=== PATIENT | male | born 1955 | race Two or more races ===

== ENCOUNTER 2023-04-17 09:00 | Inpatient (IN) | payer OTHER ==
[2023-04-17] MEDS ORDERED: BENICAR40 MG (10:33)
[2023-04-17] MEDS ORDERED: HYDROCHLOROTHIA25 MG (10:33)
[2023-04-17] MEDS ORDERED: CARDIZEM CD240 MG (10:33)
[2023-04-17] MEDS ORDERED: CARDURA XL4 MG PO (10:34)
[2023-04-17 11:19] LABS: PH,URINE 5.5 (5.0-8.0); URINE APPEARANCE Clear; URINE BILIRRUBIN Negative (NEGATIVE); URINE BLOOD Negative; URINE COLOR Yellow; URINE GLUCOSE Negative (NEGATIVE); URINE LEUKOCYTE Negative; URINE NITRATE Negative; URINE PROTEIN Negative (NEGATIVE); URINE UROBILINOGEN 0.2 E.U./dl
[2023-04-17 11:20] LABS: URINE BACTERIA 12.5 uL (0.0-1933); URINE EPITHELIAL CELLS 1.5 uL (0.0-38.8); URINE RBC 5.1 uL (0.0-20.8); URINE WBC 2.4 uL (0.0-23.2)
[2023-04-17 11:24] LABS: HEMATOCRIT 42.6 % (39.0-48.0); HEMOGLOBIN 14.7 g/dL (13-16.00); MEAN CORPUSCULAR HGB CONC 34.5 g/dl (32.0-36.0); RED CELL DISTRIBUTION WIDTH 14.2 % (11.5-14.5)
[2023-04-17 11:41] LABS: PLATELET COUNT 116 K/uL (150-450)
[2023-04-17 11:50] LABS: INR 1.04; PARTIAL THROMBOPLASTIN TIME 29.5 SECONDS (22.0-34.0); PROTHROMBIN TIME 10.9 SECONDS (9.0-11.5)
[2023-04-17 11:57] LABS: ALBUMIN 4.1 gm/dL (3.4-5.0); BILIRUBIN TOTAL 0.74 mg/dL (0.3-1.2); CALCIUM 9.5 mg/dL (8.5-10.1); CREATININE SERUM 0.94 mg/dL (0.70-1.30); GFR 79.81; GLOBULINA 3.4 G/DL (2.4-3.5); POTASSIUM 3.42 mEq/L (3.5-5.1); TOTAL PROTEIN 7.5 gm/dL (6.4-8.2)
[2023-04-23] MEDS ORDERED: VANCOMYCIN HCL 1,000 MG VIAL ONE ×2 (12:59→13:20)
[2023-04-23] MEDS ORDERED: LIDOCAINE HCL/EPINEPHRINE 20 ML VIAL IJ ONE (13:20)
[2023-04-23] MEDS ORDERED: KETOROLAC TROMETHAMINE 60 MG VIAL IM ONE ×2 (13:20→15:45)
[2023-04-23] MEDS ORDERED: TRANEXAMIC ACID 100MG/1ML (1000MG) AMPUL IV ONE ×2 (13:20→15:00)
[2023-04-23] MEDS ORDERED: POVIDONE-IODINE 3 EA MED..SWAB TOP ONE (13:20)
[2023-04-23] MEDS ORDERED: BUPIVACAINE HCL/PF 0.5% 1ML ONE (13:20)
[2023-04-23] MEDS ORDERED: ONDANSETRON HCL 2 MG/ML VIAL IV PRN (14:45)
[2023-04-23] MEDS ORDERED: OxyCODONE HCL 5 MG TABLET (ROXICODONE) PO PRN (14:45)
[2023-04-23] MEDS ORDERED: MORPHINE SULFATE 4 MG/ML CARTRIDGE IV PRN (14:45)
[2023-04-23] MEDS ORDERED: SODIUM CHLORIDE 0.45 % 1,000 ML IV SCH (14:45)
[2023-04-23] MEDS ORDERED: VANCOMYCIN HCL 1,000 MG VIAL IV ONE (15:15)
[2023-04-23] MEDS ORDERED: MORPHINE SULFATE 4 MG/ML VIAL IV ONE (15:45)
[2023-04-23] MEDS ORDERED: BUPIVACAINE HCL/PF 0.5% 30ML ML IJ ONE (15:45)
[2023-04-23] MEDS ORDERED: LIDOCAINE HCL/EPINEPHRINE 30 ML ML IJ ONE (15:45)
[2023-04-23] MEDS ORDERED: GABAPENTIN 300 MG CAPSULE PO SCH (17:00)
[2023-04-23] MEDS ORDERED: ENALAPRILAT DIHYDRATE 1.25 MG/ML VIAL IV PRN (17:45)
[2023-04-23] MEDS ORDERED: ACETAMINOPHEN 500 MG GEL..CAP PO SCH (18:00)
[2023-04-23] MEDS ORDERED: CELECOXIB 200 MG CAPSULE PO SCH (21:00)
[2023-04-23] MEDS ORDERED: VANCOMYCIN HCL 1,000 MG in 0.9 % SODIUM CHLORIDE 250 ML IV SCH (21:00)
[2023-04-24] MEDS ORDERED: CIPRO500 MG PO (07:24)
[2023-04-24] MEDS ORDERED: ELIQUIS2.5 MG PO (07:24)
[2023-04-24] MEDS ORDERED: PERCOCET 5-3251 EACH PO (07:24)
[2023-04-24 08:07] LABS: HEMATOCRIT 37.4 % (39.0-48.0); HEMOGLOBIN 12.9 g/dL (13-16.00); MEAN CELL VOLUME 85.4 fL (80.0-100.00); MEAN CORPUSCULAR HEMOGLOBIN 29.4 pg (27.00-32.0); MEAN CORPUSCULAR HGB CONC 34.4 g/dl (32.0-36.0); RED BLOOD COUNT 4.38 M/uL (4.00-6.00); RED CELL DISTRIBUTION WIDTH 14.3 % (11.5-14.5)
[2023-04-24 08:10] LABS: PLATELET COUNT 66 K/uL (150-450)
[2023-04-24] MEDS ORDERED: DOXAZOSIN MESYLATE 4 MG TABLET PO SCH (09:00)
[2023-04-24] MEDS ORDERED: PATIENTS OWN MEDICATION (MEDICAMENTO EN PISO) PO SCH (09:00)
[2023-04-24] MEDS ORDERED: HYDROCHLOROTHIAZIDE 25 MG TABLET PO SCH (09:00)
[2023-04-24] MEDS ORDERED: APIXABAN 2.5 MG TABLET PO SCH (09:00)
[2023-04-24] MEDS ORDERED: DILTIAZEM HCL 240 MG CAP.SR.24H PO SCH (09:00)
[2023-04-24] MEDS ORDERED: SENNOSIDES 1 TAB TABLET PO SCH (09:00)
[2023-04-24] MEDS ORDERED: VANCOMYCIN HCL 1,000 MG VIAL IV ONE (11:45)
[2023-04-24] MEDS ORDERED: Cyanocobalamin/Mecobalamin 1 TAB.SL SL SCH (18:21)
[2023-04-24] MEDS ORDERED: VITAMIN B COMPLEX 1 EACH PO SCH (18:21)
[2023-04-25] MEDS ORDERED: IRON FUM,PS/FOLIC ACID/VITC/B3 1 CAP CAPSULE PO SCH (09:00)
[2023-04-25 11:38] LABS: HEMATOCRIT 35.4 % (39.0-48.0); HEMOGLOBIN 12.3 g/dL (13-16.00); MEAN CELL VOLUME 86.4 fL (80.0-100.00); MEAN CORPUSCULAR HGB CONC 34.7 g/dl (32.0-36.0); RED BLOOD COUNT 4.09 M/uL (4.00-6.00); RED CELL DISTRIBUTION WIDTH 14.2 % (11.5-14.5)
[2023-04-25 11:39] LABS: PLATELET COUNT 83 K/uL (150-450)
== END 2023-04-25 17:25 | disposition home or self-care (01) | DRG 470 ==
LOC: O/R 04-23 05:33 → SURH 04-23 09:00 → SURG 04-23 22:18
PROVIDERS: ADMIT Orthopaedic Surgery; ATTEND Orthopaedic Surgery
PROC: 0SRD0J9 Replacement of Left Knee Joint with Synthetic Substitute, Cemented, Open Approach (ICD-10-PCS; principal; 2023-04-23 11:30)
DX: M17.12 Unilateral primary osteoarthritis, left knee (principal); D62 Acute posthemorrhagic anemia; M22.12 Recurrent subluxation of patella, left knee; I10 Essential (primary) hypertension; Z20.822 Contact with and (suspected) exposure to COVID-19

== ENCOUNTER 2023-11-27 13:00 | Inpatient (IN) | payer OTHER ==
[~2023-11-27] VITALS: Ht 167.6 cm; Wt 63.5 kg
[~2023-11-27 13:00] MED LIST: BENICAR40 MG; CARDIZEM CD240 MG; CARDURA XL4 MG PO; CIPRO500 MG PO; ELIQUIS2.5 MG PO; HYDROCHLOROTHIA25 MG; PERCOCET 5-3251 EACH PO
[2023-11-27] MEDS ORDERED: 0.9 % SODIUM CHLORIDE 500 ML IV ONE (14:45)
[2023-11-27] MEDS ORDERED: FAMOTIDINE/PF 20 MG/2 ML VIAL IV ONE (14:45)
[2023-11-27] MEDS ORDERED: ONDANSETRON HCL 2 MG/ML VIAL IV ONE (15:00)
[2023-11-27] MEDS ORDERED: ONDANSETRON HCL 2 MG/ML VIAL ONE (15:26)
[2023-11-27] MEDS ORDERED: FAMOTIDINE/PF 20 MG/2 ML VIAL ONE (15:26)
[2023-11-27 15:53] LABS: HEMATOCRIT 25.1 % (39.0-48.0); MEAN CELL VOLUME 84.4 fL (80.0-100.00); MEAN CORPUSCULAR HEMOGLOBIN 30.4 pg (27.00-32.0); PLATELET COUNT 112 K/uL (150-450); RED BLOOD COUNT 2.97 M/uL (4.00-6.00); RED CELL DISTRIBUTION WIDTH 16.8 % (11.5-14.5)
[2023-11-27 16:18] LABS: ALBUMIN 3.9 gm/dL (3.4-5.0); BILIRUBIN TOTAL 0.27 mg/dL (0.3-1.2); CREATININE SERUM 3.16 mg/dL (0.70-1.30); GFR 19.64; GLOBULINA 3.4 G/DL (2.4-3.5); TOTAL PROTEIN 7.3 gm/dL (6.4-8.2)
[2023-11-27] MEDS ORDERED: SODIUM POLYSTYRENE SULFONATE 15 G/4 TSP TSP PO ONE (16:30)
[2023-11-27] MEDS ORDERED: INSULIN REGULAR, HUMAN 1,000 UNIT/10 ML UNITS IV ONE (16:30)
[2023-11-27] MEDS ORDERED: FUROsemide 40 MG/4 ML VIAL IV ONE (16:30)
[2023-11-27] MEDS ORDERED: DEXTROSE 50 % IN WATER 0.5 G/ML VIAL IV ONE (16:30)
[2023-11-27] MEDS ORDERED: CALCIUM GLUCONATE 100 MG/ML VIAL IV ONE (16:30)
[2023-11-27 16:46] LABS: POTASSIUM 7.48 mEq/L (3.5-5.1)
[2023-11-27 16:47] LABS: ABG PH 7.332 (7.35-7.45); ABG PO2 109.8 mmHg (80-100); ABG pCO2 32.3 mmHg (35-45); BASE EXCESS -7.9 mmol/l; BICARBONATE 16.7 mmol/l (23-25); SaO2 97.7 %; Tco2 17.7 mmol/l
[2023-11-27 16:55] LABS: MAGNESIUM 2.6 mg/dL (1.8-2.4); PHOSPHOROUS 3.6 mg/dL (2.5-4.9)
[2023-11-27] MEDS ORDERED: CALCIUM GLUCONATE 100 MG/ML VIAL ONE (16:56)
[2023-11-27] MEDS ORDERED: DEXTROSE 50 % IN WATER 0.5 G/ML DISP.SYRIN IV ONE (16:56)
[2023-11-27] MEDS ORDERED: FUROsemide 40 MG/4 ML VIAL ONE (16:57)
[2023-11-27] MEDS ORDERED: ACETAMINOPHEN 500 MG GEL..CAP PO PRN (17:45)
[2023-11-27] MEDS ORDERED: SODIUM POLYSTYRENE SULFONATE 15 G/4 TSP TSP PO SCH (17:45)
[2023-11-27] MEDS ORDERED: SODIUM BICARBONATE 50 MEQ in SODIUM CHLORIDE 0.45 % 1,000 ML IV ONE (17:45)
[2023-11-27] MEDS ORDERED: 0.9 % SODIUM CHLORIDE 1,000 ML IV SCH (18:00)
[2023-11-27] MEDS ORDERED: LACTULOSE 10 G/15 ML ML PO ONE (18:00)
[2023-11-27] MEDS ORDERED: SODIUM BICARBONATE 50MEQ/50ML VIAL IV ONE (18:12)
[2023-11-27 18:27] LABS: URINE APPEARANCE Clear; URINE BILIRRUBIN Negative (NEGATIVE); URINE BLOOD Small; URINE COLOR Yellow; URINE GLUCOSE Negative (NEGATIVE); URINE KETONE Negative (NEGATIVE); URINE LEUKOCYTE Negative; URINE NITRATE Negative; URINE PROTEIN Negative (NEGATIVE); URINE UROBILINOGEN 0.2 E.U./dl
[2023-11-27 18:31] LABS: URINE RBC 2.2 uL (0.0-20.8)
[2023-11-27 18:32] LABS: URINE BACTERIA 2.5 uL (0.0-1933); URINE CAST 0.15 uL (0.0-1.40); URINE EPITHELIAL CELLS 0.1 uL (0.0-38.8); URINE WBC 0.9 uL (0.0-23.2)
[2023-11-27] MEDS ORDERED: LACTULOSE 20 G/30 ML BLIST.PACK ONE (18:49)
[2023-11-27 18:57] LABS: INR 1.03; PARTIAL THROMBOPLASTIN TIME 27.8 SECONDS (22.0-34.0); PROTHROMBIN TIME 11.2 SECONDS (9.0-11.5)
[2023-11-27] MEDS ORDERED: hydrALAZINE HCL 20 MG VIAL IV PRN (19:15)
[2023-11-27] MEDS ORDERED: ONDANSETRON HCL 2 MG/ML VIAL IV PRN (19:15)
[2023-11-27 20:14] LABS: allen test SATISFACTORY; puncture site RADIAL RIGHT
[2023-11-27 20:15] LABS: o2 21 %
[2023-11-27 21:34] VITALS: O2SAT 99
[2023-11-28] VITALS (9 sets, daily range): BP systolic 129–136; BP diastolic 63–84; O2SAT 96–100
[2023-11-28] MEDS ORDERED: FAMOTIDINE/PF 20 MG/2 ML VIAL ONE (08:32)
[2023-11-28] MEDS ORDERED: SODIUM POLYSTYRENE SULFONATE 15 G/4 TSP TSP PO SCH (09:00)
[2023-11-28] MEDS ORDERED: DILTIAZEM HCL 240 MG CAP.SR.24H PO SCH (09:00)
[2023-11-28] MEDS ORDERED: ENOXAPARIN SODIUM 30 MG/0.3 ML SYRINGE SUBCUTANEO SCH (09:00)
[2023-11-28] MEDS ORDERED: FAMOTIDINE/PF 20 MG in 0.9 % SODIUM CHLORIDE 8 ML IV PUSH SCH (09:00)
[2023-11-28 13:04] LABS: ALBUMIN 3.9 gm/dL (3.4-5.0); BILIRUBIN TOTAL 0.39 mg/dL (0.3-1.2); CREATININE SERUM 2.63 mg/dL (0.70-1.30); GFR 24.27; GLOBULINA 3.5 G/DL (2.4-3.5); TOTAL PROTEIN 7.4 gm/dL (6.4-8.2); TSH 0.451 uIU/mL (0.358-3.74)
[2023-11-28 13:23] LABS: POTASSIUM 5.93 mEq/L (3.5-5.1)
[2023-11-29] VITALS (8 sets, daily range): BP systolic 126–175; BP diastolic 63–85; O2SAT 97–100
[2023-11-29 06:17] LABS: MEAN CELL VOLUME 86.5 fL (80.0-100.00); MEAN CORPUSCULAR HGB CONC 34.6 g/dl (32.0-36.0); RED BLOOD COUNT 2.62 M/uL (4.00-6.00)
[2023-11-29 06:22] LABS: HEMATOCRIT 22.7 % (39.0-48.0); MEAN CORPUSCULAR HEMOGLOBIN 30.1 pg (27.00-32.0); PLATELET COUNT 88 K/uL (150-450)
[2023-11-29 06:23] LABS: HEMOGLOBIN 7.9 g/dL (13-16.00)
[2023-11-29] MEDS ORDERED: FUROsemide 20 MG/2 ML VIAL IV SCH (06:30)
[2023-11-29 06:47] LABS: ALBUMIN 3.2 gm/dL (3.4-5.0); BILIRUBIN TOTAL 0.22 mg/dL (0.3-1.2); CALCIUM 8.2 mg/dL (8.5-10.1); CREATININE SERUM 2.33 mg/dL (0.70-1.30); GFR 27.91; GLOBULINA 3.1 G/DL (2.4-3.5); POTASSIUM 5.57 mEq/L (3.5-5.1); TOTAL PROTEIN 6.3 gm/dL (6.4-8.2)
[2023-11-29] MEDS ORDERED: FAMOTIDINE/PF 20 MG/2 ML VIAL ONE (07:45)
[2023-11-29] MEDS ORDERED: DOXAZOSIN MESYLATE 4 MG TABLET PO SCH (22:00)
[2023-11-30] VITALS (9 sets, daily range): BP systolic 130–173; BP diastolic 75–86; O2SAT 96–97
[2023-11-30 02:43] LABS: HEMATOCRIT 30.7 % (39.0-48.0); HEMOGLOBIN 10.5 g/dL (13-16.00); MEAN CELL VOLUME 86.6 fL (80.0-100.00); MEAN CORPUSCULAR HEMOGLOBIN 29.7 pg (27.00-32.0); MEAN CORPUSCULAR HGB CONC 34.2 g/dl (32.0-36.0); RED BLOOD COUNT 3.55 M/uL (4.00-6.00); RED CELL DISTRIBUTION WIDTH 16.4 % (11.5-14.5)
[2023-11-30 02:44] LABS: PLATELET COUNT 97 K/uL (150-450)
[2023-11-30 04:27] LABS: POTASSIUM 4.83 mEq/L (3.5-5.1)
[2023-11-30 04:38] LABS: ALBUMIN 3.4 gm/dL (3.4-5.0); CALCIUM 8.3 mg/dL (8.5-10.1); CREATININE SERUM 2.17 mg/dL (0.70-1.30); GFR 30.3; PHOSPHOROUS 4.4 mg/dL (2.5-4.9)
[2023-11-30 04:48] LABS: FERRITIN 583.1 NG/ML (26-388)
[2023-11-30] MEDS ORDERED: FAMOTIDINE/PF 20 MG/2 ML VIAL ONE (08:16)
[2023-11-30] MEDS ORDERED: hydrALAZINE HCL 10 MG TABLET PO SCH (13:00)
[2023-11-30] MEDS ORDERED: hydrALAZINE HCL 25 MG TABLET PO SCH (18:45)
[2023-11-30] MEDS ORDERED: METOPROLOL TARTRATE 25 MG TABLET PO SCH (18:49)
[2023-11-30] MEDS ORDERED: ENALAPRILAT DIHYDRATE 1.25 MG/ML VIAL IV PRN (19:00)
[2023-11-30] MEDS ORDERED: IRON/V.C/V.B12/FOLIC A/VIT. E 1 CAPL CAPLET PO SCH (19:01)
[2023-12-01] VITALS (9 sets, daily range): BP systolic 151–166; BP diastolic 63–82; O2SAT 95–97
[2023-12-01 12:04] LABS: PLATELET ESTIMATE DECREASED (NORMAL)
[2023-12-01] MEDS ORDERED: RINGERS SOLUTION,LACTATED 1,000 ML IV SCH (13:15)
[2023-12-01] MEDS ORDERED: DOXAZOSIN MESYLATE 8 MG TABLET PO SCH (17:00)
[2023-12-01] MEDS ORDERED: hydrALAZINE HCL 25 MG TABLET PO SCH (21:00)
[2023-12-02] VITALS (8 sets, daily range): BP systolic 154–176; BP diastolic 76–92; O2SAT 95–99
[2023-12-02 12:26] LABS: HEMATOCRIT 28.4 % (39.0-48.0); HEMOGLOBIN 9.7 g/dL (13-16.00); MEAN CELL VOLUME 86.4 fL (80.0-100.00); MEAN CORPUSCULAR HEMOGLOBIN 29.7 pg (27.00-32.0); MEAN CORPUSCULAR HGB CONC 34.3 g/dl (32.0-36.0); RED BLOOD COUNT 3.28 M/uL (4.00-6.00); RED CELL DISTRIBUTION WIDTH 16.1 % (11.5-14.5)
[2023-12-02 12:27] LABS: PLATELET COUNT 56 K/uL (150-450)
[2023-12-02 12:53] LABS: INR 1.08; PARTIAL THROMBOPLASTIN TIME 32.1 SECONDS (22.0-34.0); PROTHROMBIN TIME 11.7 SECONDS (9.0-11.5)
[2023-12-02 12:59] LABS: ALBUMIN 3.1 gm/dL (3.4-5.0); BILIRUBIN TOTAL 0.41 mg/dL (0.3-1.2); CALCIUM 8.6 mg/dL (8.5-10.1); CREATININE SERUM 1.61 mg/dL (0.70-1.30); GFR 42.76; GLOBULINA 2.7 G/DL (2.4-3.5); POTASSIUM 4.06 mEq/L (3.5-5.1); TOTAL PROTEIN 5.8 gm/dL (6.4-8.2)
[2023-12-03] VITALS (7 sets, daily range): BP systolic 156–1325; BP diastolic 69–84; O2SAT 95–98
[2023-12-03] MEDS ORDERED: hydrALAZINE HCL 50 MG TABLET PO SCH (09:00)
[2023-12-03] MEDS ORDERED: SODIUM CHLORIDE 0.45 % 1,000 ML IV SCH (17:45)
[2023-12-03] MEDS ORDERED: MORPHINE SULFATE 4 MG/ML CARTRIDGE IV PRN (17:45)
[2023-12-03] MEDS ORDERED: OxyCODONE HCL 5 MG TABLET (ROXICODONE) PO PRN (17:45)
[2023-12-03] MEDS ORDERED: ONDANSETRON HCL 2 MG/ML VIAL IV PRN (17:45)
[2023-12-03] MEDS ORDERED: ACETAMINOPHEN 500 MG GEL..CAP PO SCH (18:00)
[2023-12-04] VITALS (11 sets, daily range): BP systolic 114–180; BP diastolic 64–82; O2SAT 94–97
[2023-12-04 07:45] LABS: HEMATOCRIT 25.9 % (39.0-48.0); HEMOGLOBIN 9.1 g/dL (13-16.00); MEAN CELL VOLUME 86.5 fL (80.0-100.00); MEAN CORPUSCULAR HEMOGLOBIN 30.2 pg (27.00-32.0); RED BLOOD COUNT 2.99 M/uL (4.00-6.00); RED CELL DISTRIBUTION WIDTH 16.7 % (11.5-14.5)
[2023-12-04 07:57] LABS: PLATELET COUNT 78 K/uL (150-450)
[2023-12-04 08:13] LABS: ALBUMIN 2.8 gm/dL (3.4-5.0); BILIRUBIN TOTAL 0.47 mg/dL (0.3-1.2); CALCIUM 8.6 mg/dL (8.5-10.1); CREATININE SERUM 1.66 mg/dL (0.70-1.30); GFR 41.28; GLOBULINA 2.7 G/DL (2.4-3.5); POTASSIUM 4.17 mEq/L (3.5-5.1); TOTAL PROTEIN 5.5 gm/dL (6.4-8.2)
[2023-12-04] MEDS ORDERED: SENNOSIDES 1 TAB TABLET PO SCH (09:00)
[2023-12-04] MEDS ORDERED: APIXABAN 2.5 MG TABLET PO SCH (09:00)
[2023-12-05] VITALS (10 sets, daily range): BP systolic 113–169; BP diastolic 60–80; O2SAT 93–97
[2023-12-05 19:38] LABS: ABG PH 7.483 (7.35-7.45); ABG PO2 82.7 mmHg (80-100); BASE EXCESS 1.4 mmol/l; BICARBONATE 24.2 mmol/l (23-25); Tco2 25.2 mmol/l
[2023-12-05 19:42] LABS: allen test SATISFACTORY; o2 21 %; puncture site RADIAL RIGHT
[2023-12-05] MEDS ORDERED: CEFAZOLIN SODIUM 1,000 MG VIAL IV SCH (21:00)
[2023-12-06] VITALS (7 sets, daily range): BP systolic 125–174; BP diastolic 66–73; O2SAT 94–97
[2023-12-06 06:49] LABS: MEAN CELL VOLUME 86.1 fL (80.0-100.00); MEAN CORPUSCULAR HGB CONC 36.4 g/dl (32.0-36.0); RED BLOOD COUNT 2.73 M/uL (4.00-6.00); RED CELL DISTRIBUTION WIDTH 16.5 % (11.5-14.5)
[2023-12-06 06:57] LABS: HEMATOCRIT 23.5 % (39.0-48.0); HEMOGLOBIN 8.6 g/dL (13-16.00); MEAN CORPUSCULAR HEMOGLOBIN 31.5 pg (27.00-32.0); PLATELET COUNT 50 K/uL (150-450)
[2023-12-06 06:59] LABS: ALBUMIN 2.8 gm/dL (3.4-5.0); BILIRUBIN TOTAL 0.58 mg/dL (0.3-1.2); CALCIUM 8.1 mg/dL (8.5-10.1); CREATININE SERUM 1.78 mg/dL (0.70-1.30); GFR 38.09; GLOBULINA 2.7 G/DL (2.4-3.5); MAGNESIUM 1.6 mg/dL (1.8-2.4); POTASSIUM 3.41 mEq/L (3.5-5.1); TOTAL PROTEIN 5.5 gm/dL (6.4-8.2)
[2023-12-06 08:33] LABS: URINE APPEARANCE Cloudy; URINE BILIRRUBIN Negative (NEGATIVE); URINE BLOOD Large; URINE COLOR Yellow; URINE GLUCOSE Negative (NEGATIVE); URINE KETONE Negative (NEGATIVE); URINE LEUKOCYTE Negative; URINE NITRATE Negative; URINE PROTEIN Trace (NEGATIVE); URINE UROBILINOGEN 0.2 E.U./dl
[2023-12-06 08:37] LABS: URINE BACTERIA 7.5 uL (0.0-1933); URINE EPITHELIAL CELLS 6.1 uL (0.0-38.8); URINE RBC 266.8 uL (0.0-20.8); URINE WBC 6.8 uL (0.0-23.2)
[2023-12-06 08:57] LABS: URINE CAST 0.15 uL (0.0-1.40)
[2023-12-06] MEDS ORDERED: PANTOPRAZOLE SODIUM 40 MG TABLET.DR PO STA (17:28)
[2023-12-06] MEDS ORDERED: FAMOTIDINE/PF 20 MG/2 ML VIAL IV PUSH NR (17:38)
[2023-12-07] VITALS (10 sets, daily range): BP systolic 130–148; BP diastolic 63–79; O2SAT 93–97
[2023-12-07] MEDS ORDERED: PANTOPRAZOLE SODIUM 40 MG TABLET.DR PO SCH (09:00)
[2023-12-07] MEDS ORDERED: MAGNESIUM SULFATE IN WATER 50 ML IV NR (10:48)
[2023-12-07] MEDS ORDERED: POTASSIUM BICARBONATE/CIT AC 25 MEQ TABLET.EFF PO SCH (12:00)
[2023-12-07] MEDS ORDERED: TRAMADOL HCL 50 MG TABLET PO PRN (21:45)
[2023-12-08] VITALS (8 sets, daily range): BP systolic 112–160; BP diastolic 64–78; O2SAT 92–98
[2023-12-08 07:28] LABS: ALBUMIN 2.6 gm/dL (3.4-5.0); BILIRUBIN TOTAL 0.37 mg/dL (0.3-1.2); CALCIUM 8.1 mg/dL (8.5-10.1); CREATININE SERUM 1.95 mg/dL (0.70-1.30); GFR 34.28; GLOBULINA 2.9 G/DL (2.4-3.5); MAGNESIUM 2.3 mg/dL (1.8-2.4); POTASSIUM 4.05 mEq/L (3.5-5.1); TOTAL PROTEIN 5.5 gm/dL (6.4-8.2)
[2023-12-08 07:56] LABS: MEAN CELL VOLUME 88.5 fL (80.0-100.00); MEAN CORPUSCULAR HGB CONC 35.1 g/dl (32.0-36.0); RED BLOOD COUNT 2.49 M/uL (4.00-6.00); RED CELL DISTRIBUTION WIDTH 16.6 % (11.5-14.5)
[2023-12-08 07:57] LABS: MEAN CORPUSCULAR HEMOGLOBIN 30.9 pg (27.00-32.0); PLATELET COUNT 47 K/uL (150-450)
[2023-12-08 08:44] LABS: HEMOGLOBIN 7.7 g/dL (13-16.00)
[2023-12-08] MEDS ORDERED: SOD FERRIC GLUC COMPLX/SUCROSE 62.5 MG/5 ML AMPUL IV SCH (09:01)
[2023-12-08] MEDS ORDERED: FUROsemide 20 MG/2 ML VIAL IV PRN (09:15)
[2023-12-09] VITALS (8 sets, daily range): BP systolic 131–187; BP diastolic 68–87; O2SAT 90–99
[2023-12-09] MEDS ORDERED: LEVALBUTEROL HCL 0.63 MG/3 ML SOLUTION IH SCH (09:00)
[2023-12-09 09:53] LABS: ABG PH 7.475 (7.35-7.45); ABG PO2 99.8 mmHg (80-100); ABG pCO2 33.3 mmHg (35-45); BASE EXCESS 1.1 mmol/l; SaO2 98.2 %
[2023-12-09] MEDS ORDERED: GUAIFENESIN 200 MG/10 ML BLIST.PACK PO NR (10:00)
[2023-12-09] MEDS ORDERED: FUROsemide 20 MG/2 ML VIAL IV NR (10:00)
[2023-12-09 10:13] LABS: allen test SATISFACTORY; o2 32 %; puncture site RADIAL RIGHT
[2023-12-09] MEDS ORDERED: GUAIFENESIN 200 MG/10 ML BLIST.PACK PO SCH (14:00)
[2023-12-09 15:22] LABS: URINE APPEARANCE Clear; URINE BILIRRUBIN Negative (NEGATIVE); URINE BLOOD Large; URINE COLOR Yellow; URINE GLUCOSE Negative (NEGATIVE); URINE KETONE Negative (NEGATIVE); URINE LEUKOCYTE Negative; URINE NITRATE Negative; URINE PROTEIN Negative (NEGATIVE); URINE UROBILINOGEN 0.2 E.U./dl
[2023-12-09 15:23] LABS: URINE RBC 271.9 uL (0.0-20.8)
[2023-12-09 15:32] LABS: URINE CAST 0.45 uL (0.0-1.40); URINE EPITHELIAL CELLS 0.7 uL (0.0-38.8)
[2023-12-09 17:54] LABS: EOSINOPHILS,URINE NONE EOS SEEN
[2023-12-09] MEDS ORDERED: FUROsemide 20 MG/2 ML VIAL IV SCH (21:00)
[2023-12-10] VITALS (8 sets, daily range): BP systolic 153–184; BP diastolic 64–81; O2SAT 95–100
[2023-12-10 06:43] LABS: MEAN CELL VOLUME 86.6 fL (80.0-100.00); MEAN CORPUSCULAR HGB CONC 34.6 g/dl (32.0-36.0); RED BLOOD COUNT 2.62 M/uL (4.00-6.00); RED CELL DISTRIBUTION WIDTH 16.8 % (11.5-14.5)
[2023-12-10 06:45] LABS: HEMATOCRIT 22.7 % (39.0-48.0); MEAN CORPUSCULAR HEMOGLOBIN 30.1 pg (27.00-32.0)
[2023-12-10 06:46] LABS: HEMOGLOBIN 7.9 g/dL (13-16.00); PLATELET COUNT 102 K/uL (150-450)
[2023-12-10 07:17] LABS: ALBUMIN 2.5 gm/dL (3.4-5.0); BILIRUBIN TOTAL 0.43 mg/dL (0.3-1.2); CALCIUM 8.2 mg/dL (8.5-10.1); CREATININE SERUM 2.1 mg/dL (0.70-1.30); GFR 31.47; GLOBULINA 3.1 G/DL (2.4-3.5); MAGNESIUM 2.1 mg/dL (1.8-2.4); PHOSPHOROUS 3.9 mg/dL (2.5-4.9); POTASSIUM 3.78 mEq/L (3.5-5.1); TOTAL PROTEIN 5.6 gm/dL (6.4-8.2)
[2023-12-10 07:26] LABS: C-REACTIVE PROTEIN 18.7 MG/DL (0.00-0.29)
[2023-12-10] MEDS ORDERED: hydrALAZINE HCL 50 MG TABLET PO SCH (09:00)
[2023-12-10] MEDS ORDERED: OSELTAMIVIR PHOSPHATE 75 MG CAPSULE PO NR (11:00)
[2023-12-10] MEDS ORDERED: EPOETIN ALFA-EPBX 10,000 UNIT/ML VIAL (Retacrit) SUBCUTANEO NR (18:00)
[2023-12-10] MEDS ORDERED: OSELTAMIVIR PHOSPHATE 30MG CAP PO SCH (21:00)
[2023-12-11] VITALS (10 sets, daily range): BP systolic 152–169; BP diastolic 67–78; O2SAT 90–98
[2023-12-11 04:13] LABS: HEMATOCRIT 27.8 % (39.0-48.0); MEAN CELL VOLUME 85.1 fL (80.0-100.00); PLATELET COUNT 134 K/uL (150-450); RED BLOOD COUNT 3.27 M/uL (4.00-6.00); RED CELL DISTRIBUTION WIDTH 16.4 % (11.5-14.5)
[2023-12-11 04:17] LABS: MEAN CORPUSCULAR HEMOGLOBIN 29.6 pg (27.00-32.0)
[2023-12-11 04:18] LABS: HEMOGLOBIN 9.7 g/dL (13-16.00)
[2023-12-11 07:20] LABS: CALCIUM 8.3 mg/dL (8.5-10.1); CREATININE SERUM 2.21 mg/dL (0.70-1.30); GFR 29.67; MAGNESIUM 2.1 mg/dL (1.8-2.4); PHOSPHOROUS 3.2 mg/dL (2.5-4.9); POTASSIUM 3.5 mEq/L (3.5-5.1)
[2023-12-12 01:39] VITALS: BP 171/82; O2SAT 98
[2023-12-12 06:37] VITALS: O2SAT 96
[2023-12-12 09:17] VITALS: BP 165/79; O2SAT 95
[2023-12-12 09:48] VITALS: O2SAT 97
[2023-12-12 12:32] VITALS: O2SAT 96
[2023-12-12 16:40] VITALS: BP 132/66
[2023-12-13] VITALS (9 sets, daily range): BP systolic 140–168; BP diastolic 71–80; O2SAT 96–98
[2023-12-13 05:43] LABS: ALBUMIN 2.6 gm/dL (3.4-5.0); BILIRUBIN TOTAL 0.39 mg/dL (0.3-1.2); CALCIUM 8.1 mg/dL (8.5-10.1); CREATININE SERUM 1.99 mg/dL (0.70-1.30); GFR 33.49; GLOBULINA 3.4 G/DL (2.4-3.5); MAGNESIUM 2.4 mg/dL (1.8-2.4); PHOSPHOROUS 3.3 mg/dL (2.5-4.9); POTASSIUM 4.02 mEq/L (3.5-5.1)
[2023-12-13 05:49] LABS: C-REACTIVE PROTEIN 6.08 MG/DL (0.00-0.29)
[2023-12-13 06:16] LABS: HEMATOCRIT 27.2 % (39.0-48.0); HEMOGLOBIN 9.4 g/dL (13-16.00); MEAN CELL VOLUME 85.4 fL (80.0-100.00); MEAN CORPUSCULAR HEMOGLOBIN 29.5 pg (27.00-32.0); MEAN CORPUSCULAR HGB CONC 34.5 g/dl (32.0-36.0); PLATELET COUNT 142 K/uL (150-450); RED BLOOD COUNT 3.19 M/uL (4.00-6.00); RED CELL DISTRIBUTION WIDTH 16.6 % (11.5-14.5)
[2023-12-13 07:07] LABS: ERYTHROCYTE SEDIMENTATION RATE 80 mm/hr
[2023-12-13] MEDS ORDERED: SOD FERRIC GLUC COMPLX/SUCROSE 62.5 MG/5 ML AMPUL IV STA (13:09)
[2023-12-14] VITALS (9 sets, daily range): BP systolic 147–165; BP diastolic 61–80; O2SAT 94–99
[2023-12-15] VITALS (8 sets, daily range): BP systolic 150–160; BP diastolic 68–80; O2SAT 96–99
[2023-12-15] MEDS ORDERED: LOSARTAN POTASSIUM 50 MG TABLET PO SCH (10:52)
[2023-12-15] MEDS ORDERED: LEVALBUTEROL HCL 0.63 MG/3 ML SOLUTION IH SCH (17:00)
[2023-12-16 00:35] VITALS: O2SAT 96
[2023-12-16 02:46] VITALS: BP 146/77; O2SAT 97
[2023-12-16 06:04] VITALS: O2SAT 95
[2023-12-16 06:38] LABS: ALBUMIN 2.8 gm/dL (3.4-5.0); BILIRUBIN TOTAL 0.44 mg/dL (0.3-1.2); CALCIUM 8.6 mg/dL (8.5-10.1); CREATININE SERUM 1.89 mg/dL (0.70-1.30); GFR 35.54; GLOBULINA 3.4 G/DL (2.4-3.5); MAGNESIUM 2.5 mg/dL (1.8-2.4); PHOSPHOROUS 2.9 mg/dL (2.5-4.9); POTASSIUM 4.3 mEq/L (3.5-5.1); TOTAL PROTEIN 6.2 gm/dL (6.4-8.2)
[2023-12-16 06:45] LABS: HEMATOCRIT 29.2 % (39.0-48.0); HEMOGLOBIN 9.9 g/dL (13-16.00); MEAN CELL VOLUME 86.4 fL (80.0-100.00); MEAN CORPUSCULAR HEMOGLOBIN 29.2 pg (27.00-32.0); MEAN CORPUSCULAR HGB CONC 33.8 g/dl (32.0-36.0); PLATELET COUNT 220 K/uL (150-450); RED BLOOD COUNT 3.38 M/uL (4.00-6.00); RED CELL DISTRIBUTION WIDTH 17.1 % (11.5-14.5)
[2023-12-16 08:04] VITALS: BP 144/80
[2023-12-16 09:43] VITALS: O2SAT 96
[2023-12-16] MEDS ORDERED: CEPHALEXIN500 M1 PO (16:17)
[2023-12-16] MEDS ORDERED: INTESTINEX680 M1 PO (16:17)
[2023-12-16] MEDS ORDERED: DOXAZOSIN MESYLA8 MG PO (16:18)
[2023-12-16] MEDS ORDERED: CARTIA XT240 MG PO (16:18)
[2023-12-16] MEDS ORDERED: PANTOPRAZOLE SO40 MG PO (16:19)
[2023-12-16] MEDS ORDERED: LOPRESSOR25 MG PO (16:19)
[2023-12-16] MEDS ORDERED: HYDRALAZINE HCL50 MG PO (16:19)
[2023-12-16] MEDS ORDERED: Ferro-Plex CAPLET PO (16:20)
== END 2023-12-16 16:40 | disposition home or self-care (01) | DRG 982 ==
LOC: ER 13:01 → MEDI 18:10
PROVIDERS: General Practice; Internal Medicine; Internal Medicine Hematology & Oncology; Internal Medicine Infectious Disease; Internal Medicine Nephrology; Nurse Practitioner Family; Orthopaedic Surgery; ADMIT Internal Medicine; ATTEND Internal Medicine
PROC: BT4JZZZ Ultrasonography of Kidneys and Bladder (ICD-10-PCS; 2023-11-27)
PROC: 4A12X4Z Monitoring of Cardiac Electrical Activity, External Approach (ICD-10-PCS; 2023-11-27)
PROC: BW21ZZZ Computerized Tomography (CT Scan) of Abdomen and Pelvis (ICD-10-PCS; 2023-11-27)
PROC: 30233N1 Transfusion of Nonautologous Red Blood Cells into Peripheral Vein, Percutaneous Approach (ICD-10-PCS; 2023-11-29)
PROC: 0SSD0ZZ Reposition Left Knee Joint, Open Approach (ICD-10-PCS; principal; 2023-12-03 23:00)
PROC: BQ48ZZZ Ultrasonography of Left Knee (ICD-10-PCS; 2023-12-06)
PROC: BB24ZZZ Computerized Tomography (CT Scan) of Bilateral Lungs (ICD-10-PCS; 2023-12-09)
PROC: B54CZZZ Ultrasonography of Left Lower Extremity Veins (ICD-10-PCS; 2023-12-09)
PROC: 3E0F7GC Introduction of Other Therapeutic Substance into Respiratory Tract, Via Natural or Artificial Opening (ICD-10-PCS; 2023-12-09)
PROC: B246ZZZ Ultrasonography of Right and Left Heart (ICD-10-PCS; 2023-12-10)
DX: N17.8 Other acute kidney failure (principal); D62 Acute posthemorrhagic anemia; I13.10 Hypertensive heart and chronic kidney disease without heart failure, with stage 1 through stage 4 chronic kidney disease, or unspecified chronic kidney disease; N17.9 Acute kidney failure, unspecified; N18.4 Chronic kidney disease, stage 4 (severe); M24.562 Contracture, left knee; E87.5 Hyperkalemia; D69.6 Thrombocytopenia, unspecified

== ENCOUNTER 2024-03-12 08:06 | Inpatient (IN) | payer OTHER ==
[~2024-03-12] VITALS: Ht 170.2 cm; Wt 68.9 kg
[~2024-03-12 08:06] MED LIST changes: +CARTIA XT240 MG PO; +CEPHALEXIN500 M1 PO; +DOXAZOSIN MESYLA8 MG PO; +Ferro-Plex CAPLET PO; +HYDRALAZINE HCL50 MG PO; +INTESTINEX680 M1 PO; +LOPRESSOR25 MG PO; +NIFEDIPINE 30 MG TAB.SA.OSM PO SCH; +PANTOPRAZOLE SO40 MG PO
--- NOTE | 2024-03-12 08:18 | NUR ---
PACIENTE ALERTA Y ORIENTADO X 3. REFIERE DOLOR E INFLAMACION EN RODILLA IZQ LA CUAL FUE OPERADA PARA REMPLAZO EN FEBRERO.
[2024-03-12] MEDS ORDERED: METHYLPREDNISOLO8 MG (08:23)
[2024-03-12] MEDS ORDERED: 0.9 % SODIUM CHLORIDE 1,000 ML IV SCH ×2 (09:00→17:45)
[2024-03-12] MEDS ORDERED: CEFTRIAXONE SODIUM 1,000 MG VIAL IV ONE (09:00)
[2024-03-12] MEDS ORDERED: CEFTRIAXONE SODIUM 1,000 MG VIAL ONE (09:11)
[2024-03-12] MEDS ORDERED: OxyCODONE HCL/APAP UD (PERCOCET) PO ONE (09:15)
--- NOTE | 2024-03-12 09:50 | NUR ---
TAWNYA FROST REALIZA LABORATORIOS Y ADMINISTRA TX BENNY ORDEN MEDICA BAJO MEDIDAS ASEPTICAS. SE ORIENTA A PTE QUIEN REFIERE ENTENDER Y ACEPTAR
[2024-03-12 09:57] LABS: HEMATOCRIT 29.9 % (39.0-48.0); HEMOGLOBIN 9.9 g/dL (13-16.00); MEAN CELL VOLUME 89.1 fL (80.0-100.00); MEAN CORPUSCULAR HEMOGLOBIN 29.5 pg (27.00-32.0); MEAN CORPUSCULAR HGB CONC 33.1 g/dl (32.0-36.0); PLATELET COUNT 145 K/uL (150-450); RED BLOOD COUNT 3.36 M/uL (4.00-6.00)
[2024-03-12 10:10] LABS: ERYTHROCYTE SEDIMENTATION RATE > 130 mm/hr
[2024-03-12 10:25] LABS: ALBUMIN 2.9 gm/dL (3.4-5.0); BILIRUBIN TOTAL 0.43 mg/dL (0.3-1.2); CALCIUM 9.1 mg/dL (8.5-10.1); CREATININE SERUM 2.82 mg/dL (0.70-1.30); GFR 22.4; GLOBULINA 5.3 G/DL (2.4-3.5); POTASSIUM 3.86 mEq/L (3.5-5.1); TOTAL PROTEIN 8.2 gm/dL (6.4-8.2)
[2024-03-12 15:40] LABS: INR 1.09; PARTIAL THROMBOPLASTIN TIME 29.8 SECONDS (22.0-34.0); PROTHROMBIN TIME 11.8 SECONDS (9.0-11.5)
[2024-03-12] MEDS ORDERED: ACETAMINOPHEN 500 MG GEL..CAP PO PRN (17:45)
[2024-03-12] MEDS ORDERED: DOXAZOSIN MESYLATE 8 MG TABLET PO SCH (17:46)
[2024-03-12] MEDS ORDERED: PIPERACILLIN/TAZOBACTAM SODIUM 2.25 GM in DEXTROSE 5 % IN WATER 50 ML IV SCH (18:00)
[2024-03-12] MEDS ORDERED: MORPHINE SULFATE 2 MG/ML SYRINGE IV PRN (18:00)
[2024-03-12 18:39] LABS: URINE APPEARANCE Cloudy; URINE BILIRRUBIN Negative (NEGATIVE); URINE BLOOD Large; URINE COLOR Orange; URINE GLUCOSE Negative (NEGATIVE); URINE KETONE Negative (NEGATIVE); URINE LEUKOCYTE Trace; URINE NITRATE Negative; URINE UROBILINOGEN 0.2 E.U./dl
[2024-03-12 18:43] LABS: URINE EPITHELIAL CELLS 23.2 uL (0.0-38.8); URINE RBC 7953.5 uL (0.0-20.8); URINE WBC 72.5 uL (0.0-23.2)
[2024-03-12 19:08] LABS: URINE CAST 0.29 uL (0.0-1.40); URINE PROTEIN 100 (NEGATIVE)
[2024-03-13 01:10] VITALS: BP 187/83; O2SAT 97
[2024-03-13 08:59] VITALS: BP 160/85
[2024-03-13] MEDS ORDERED: DILTIAZEM HCL 240 MG CAP.SR.24H PO SCH (09:00)
[2024-03-13] MEDS ORDERED: FAMOTIDINE/PF 20 MG in 0.9 % SODIUM CHLORIDE 8 ML IV PUSH SCH (09:00)
[2024-03-13] MEDS ORDERED: ENOXAPARIN SODIUM 30 MG/0.3 ML SYRINGE SUBCUTANEO SCH (09:00)
[2024-03-13] MEDS ORDERED: PATIENTS OWN MEDICATION (MEDICAMENTO EN PISO) PO SCH (09:00)
[2024-03-13] MEDS ORDERED: METOPROLOL SUCCINATE 25 MG TAB.SR.24H PO SCH (09:00)
[2024-03-13] MEDS ORDERED: METOPROLOL SUCCINATE 25 MG TAB.SR.24H PO NR (12:00)
[2024-03-13] MEDS ORDERED: hydrALAZINE HCL 20 MG VIAL IV PRN (12:00)
[2024-03-13 18:28] VITALS: BP 160/85; O2SAT 95
[2024-03-13] MEDS ORDERED: CEFAZOLIN SODIUM 1,000 MG VIAL IV SCH (21:00)
[2024-03-14] MEDS ORDERED: IRON FUM,PS/FOLIC/BCOMP,C NO.9 1 CAP CAPSULE PO SCH (00:20)
[2024-03-14 01:30] VITALS: BP 152/84; O2SAT 94
[2024-03-14 07:33] LABS: ALBUMIN 2.3 gm/dL (3.4-5.0); BILIRUBIN TOTAL 0.37 mg/dL (0.3-1.2); CALCIUM 8.1 mg/dL (8.5-10.1); CREATININE SERUM 3.27 mg/dL (0.70-1.30); GFR 18.88; POTASSIUM 4.17 mEq/L (3.5-5.1); TOTAL PROTEIN 6.3 gm/dL (6.4-8.2)
[2024-03-14] MEDS ORDERED: METOPROLOL SUCCINATE 50 MG TAB.SR.24H PO SCH (09:00)
[2024-03-14 09:12] VITALS: BP 160/96; O2SAT 95
[2024-03-14 19:04] VITALS: BP 160/90
[2024-03-15 02:42] VITALS: BP 183/98; O2SAT 95
[2024-03-15 10:04] VITALS: BP 170/80; O2SAT 98
[2024-03-15 17:19] VITALS: BP 164/84; O2SAT 96
[2024-03-15] MEDS ORDERED: METOPROLOL SUCCINATE 50 MG TAB.SR.24H PO SCH (21:00)
[2024-03-17 06:36] LABS: MEAN CELL VOLUME 86.7 fL (80.0-100.00); MEAN CORPUSCULAR HGB CONC 34.4 g/dl (32.0-36.0); RED BLOOD COUNT 2.65 M/uL (4.00-6.00); RED CELL DISTRIBUTION WIDTH 16.5 % (11.5-14.5)
[2024-03-17 07:31] LABS: ALBUMIN 2.4 gm/dL (3.4-5.0); BILIRUBIN TOTAL 0.28 mg/dL (0.3-1.2); CALCIUM 8.3 mg/dL (8.5-10.1); CREATININE SERUM 3.32 mg/dL (0.70-1.30); GFR 18.55; GLOBULINA 4.1 G/DL (2.4-3.5); MAGNESIUM 2.1 mg/dL (1.8-2.4); PHOSPHOROUS 4.3 mg/dL (2.5-4.9); POTASSIUM 3.89 mEq/L (3.5-5.1); TOTAL PROTEIN 6.5 gm/dL (6.4-8.2)
[2024-03-17 08:26] LABS: HEMATOCRIT 22.9 % (39.0-48.0); HEMOGLOBIN 7.9 g/dL (13-16.00); MEAN CORPUSCULAR HEMOGLOBIN 29.8 pg (27.00-32.0); PLATELET COUNT 129 K/uL (150-450)
[2024-03-17] MEDS ORDERED: FUROsemide 20 MG/2 ML VIAL IV PRN (10:00)
[2024-03-17] MEDS ORDERED: RINGERS SOLUTION,LACTATED 1,000 ML IV SCH (12:45)
[2024-03-17 17:56] VITALS: BP 160/85; O2SAT 97
[2024-03-17] MEDS ORDERED: hydrALAZINE HCL 25 MG TABLET PO SCH (19:20)
[2024-03-18 01:41] VITALS: BP 168/85; O2SAT 90
[2024-03-18 08:55] VITALS: BP 165/82; O2SAT 96
[2024-03-18 18:18] VITALS: BP 160/80; O2SAT 97
[2024-03-19 01:10] VITALS: BP 180/90; O2SAT 98
[2024-03-19 05:28] VITALS: BP 155/80
[2024-03-19 06:44] LABS: HEMATOCRIT 30.3 % (39.0-48.0); HEMOGLOBIN 10.3 g/dL (13-16.00); MEAN CELL VOLUME 87.3 fL (80.0-100.00); MEAN CORPUSCULAR HEMOGLOBIN 29.6 pg (27.00-32.0); MEAN CORPUSCULAR HGB CONC 33.9 g/dl (32.0-36.0); PLATELET COUNT 170 K/uL (150-450); RED BLOOD COUNT 3.48 M/uL (4.00-6.00); RED CELL DISTRIBUTION WIDTH 16.2 % (11.5-14.5)
[2024-03-19 06:46] LABS: HEMATOCRIT 28.8 % (39.0-48.0); HEMOGLOBIN 9.9 g/dL (13-16.00); MEAN CELL VOLUME 86.6 fL (80.0-100.00); MEAN CORPUSCULAR HEMOGLOBIN 29.9 pg (27.00-32.0); MEAN CORPUSCULAR HGB CONC 34.5 g/dl (32.0-36.0); PLATELET COUNT 170 K/uL (150-450); RED BLOOD COUNT 3.33 M/uL (4.00-6.00); RED CELL DISTRIBUTION WIDTH 16.4 % (11.5-14.5)
[2024-03-19 07:46] LABS: ALBUMIN 2.7 gm/dL (3.4-5.0); ALKALINE PHOSPHATASE 49 U/L (50-136); ANION GAP 13 (10.0-20.0); AST/SGOT 14 U/L (15-37); BILIRUBIN TOTAL 0.34 mg/dL (0.3-1.2); BLOOD UREA NITROGEN 45 mg/dL (7-18); BUN CREA RATIO 13 (7.0-25.0); CALCIUM 8.6 mg/dL (8.5-10.1); CARBON DIOXIDE 25 mEq/L (21-32); CHLORIDE 109 mmol/L (98-107); CREATININE SERUM 3.46 mg/dL (0.70-1.30); GFR 17.69; GLOBULINA 4.2 G/DL (2.4-3.5); GLUCOSE FASTING 92 mg/dL (65-100); OSMOLALITY SERUM 296 MOSM/KG (275-295); PHOSPHOROUS 4.7 mg/dL (2.5-4.9); POTASSIUM 3.97 mEq/L (3.5-5.1); SODIUM 143 mmol/L (136-145); TOTAL PROTEIN 6.9 gm/dL (6.4-8.2)
[2024-03-19 07:51] LABS: ALT/SGPT < 6 U/L (12-78)
[2024-03-19] MEDS ORDERED: hydrALAZINE HCL 50 MG TABLET PO SCH (09:00)
[2024-03-19 09:32] VITALS: BP 170/86; O2SAT 99
[2024-03-19] MEDS ORDERED: DILTIAZEM HCL 120 MG TABLET PO STA (12:07)
[2024-03-19 12:51] VITALS: BP 145/70
[2024-03-19 17:31] VITALS: BP 127/67; O2SAT 96
[2024-03-20 01:12] VITALS: BP 149/71; O2SAT 99
[2024-03-20] MEDS ORDERED: DILTIAZEM HCL 300 MG CAP.SR.24H PO SCH (09:00)
[2024-03-20 09:28] VITALS: BP 183/87; O2SAT 100
[2024-03-20 17:48] VITALS: BP 156/76; O2SAT 95
[2024-03-20] MEDS ORDERED: DOXAZOSIN MESYLATE 8 MG TABLET PO SCH (21:00)
[2024-03-21 02:20] VITALS: BP 156/81; O2SAT 96
[2024-03-21 07:43] LABS: ALBUMIN 2.7 gm/dL (3.4-5.0); BILIRUBIN TOTAL 0.26 mg/dL (0.3-1.2); CALCIUM 8.5 mg/dL (8.5-10.1); CREATININE SERUM 3.55 mg/dL (0.70-1.30); GFR 17.17; PHOSPHOROUS 3.9 mg/dL (2.5-4.9); POTASSIUM 4.24 mEq/L (3.5-5.1); TOTAL PROTEIN 6.7 gm/dL (6.4-8.2)
[2024-03-21] MEDS ORDERED: PANTOPRAZOLE SODIUM 40 MG TABLET.DR PO SCH (09:00)
[2024-03-21 10:48] VITALS: BP 166/78; O2SAT 97
[2024-03-21] MEDS ORDERED: hydrALAZINE HCL 50 MG TABLET PO SCH (13:00)
[2024-03-21 17:31] VITALS: BP 174/80; O2SAT 96
[2024-03-21 18:08] LABS: HEMATOCRIT 30.3 % (39.0-48.0); MEAN CELL VOLUME 88.8 fL (80.0-100.00); MEAN CORPUSCULAR HEMOGLOBIN 29.4 pg (27.00-32.0); MEAN CORPUSCULAR HGB CONC 33.1 g/dl (32.0-36.0); PLATELET COUNT 169 K/uL (150-450); RED BLOOD COUNT 3.41 M/uL (4.00-6.00); RED CELL DISTRIBUTION WIDTH 16.8 % (11.5-14.5)
[2024-03-22 01:45] VITALS: BP 160/80; O2SAT 96
[2024-03-22 06:12] LABS: HEMATOCRIT 29.7 % (39.0-48.0); MEAN CELL VOLUME 89.4 fL (80.0-100.00); MEAN CORPUSCULAR HGB CONC 33.6 g/dl (32.0-36.0); PLATELET COUNT 162 K/uL (150-450); RED BLOOD COUNT 3.32 M/uL (4.00-6.00); RED CELL DISTRIBUTION WIDTH 17.2 % (11.5-14.5)
[2024-03-22 08:00] VITALS: BP 172/90; O2SAT 94
[2024-03-22 17:44] VITALS: BP 173/88; O2SAT 95
[2024-03-23 03:08] VITALS: BP 153/81; O2SAT 96
[2024-03-23 09:09] VITALS: BP 166/82; O2SAT 97
[2024-03-23] MEDS ORDERED: NIFEDIPINE 30 MG TAB.SA.OSM PO NR (13:00)
[2024-03-23 17:25] VITALS: BP 122/66; O2SAT 94
[2024-03-24 03:09] VITALS: BP 128/63; O2SAT 92
[2024-03-24 06:39] LABS: INR 1.04; PARTIAL THROMBOPLASTIN TIME 28.5 SECONDS (22.0-34.0); PROTHROMBIN TIME 11.3 SECONDS (9.0-11.5)
[2024-03-24 06:50] LABS: ALBUMIN 2.8 gm/dL (3.4-5.0); ALKALINE PHOSPHATASE 52 U/L (50-136); ANION GAP 13 (10.0-20.0); AST/SGOT 15 U/L (15-37); BILIRUBIN TOTAL 0.23 mg/dL (0.3-1.2); BLOOD UREA NITROGEN 55 mg/dL (7-18); BUN CREA RATIO 15 (7.0-25.0); CALCIUM 8.8 mg/dL (8.5-10.1); CARBON DIOXIDE 25 mEq/L (21-32); CHLORIDE 108 mmol/L (98-107); CREATININE SERUM 3.57 mg/dL (0.70-1.30); GFR 17.06; GLOBULINA 4.4 G/DL (2.4-3.5); GLUCOSE FASTING 107 mg/dL (65-100); OSMOLALITY SERUM 299 MOSM/KG (275-295); POTASSIUM 4.09 mEq/L (3.5-5.1); SODIUM 142 mmol/L (136-145); TOTAL PROTEIN 7.2 gm/dL (6.4-8.2)
[2024-03-24 07:06] LABS: ALT/SGPT < 6 U/L (12-78)
[2024-03-24 11:23] VITALS: BP 119/64
[2024-03-24] MEDS ORDERED: MORPHINE SULFATE 4 MG/ML VIAL IV ONE ×2 (16:20→17:05)
[2024-03-24] MEDS ORDERED: ONDANSETRON HCL 2 MG/ML VIAL IV PRN (20:00)
[2024-03-24] MEDS ORDERED: MORPHINE SULFATE 4 MG/ML CARTRIDGE IV PRN (20:00)
[2024-03-24] MEDS ORDERED: SODIUM CHLORIDE 0.45 % 1,000 ML IV SCH (20:00)
[2024-03-24] MEDS ORDERED: OxyCODONE HCL 5 MG TABLET (ROXICODONE) PO PRN (20:00)
[2024-03-24 22:28] VITALS: BP 148/73
[2024-03-25] MEDS ORDERED: ACETAMINOPHEN 500 MG GEL..CAP PO SCH
[2024-03-25] MEDS ORDERED: CEFAZOLIN SODIUM 1,000 MG VIAL IV SCH (01:00)
[2024-03-25] MEDS ORDERED: GABAPENTIN 300 MG CAPSULE PO SCH (01:00)
[2024-03-25 02:55] VITALS: BP 134/74; O2SAT 92
[2024-03-25 08:40] LABS: MEAN CELL VOLUME 88.2 fL (80.0-100.00); MEAN CORPUSCULAR HGB CONC 34.3 g/dl (32.0-36.0); RED BLOOD COUNT 2.64 M/uL (4.00-6.00); RED CELL DISTRIBUTION WIDTH 16.7 % (11.5-14.5)
[2024-03-25 08:49] LABS: HEMATOCRIT 23.3 % (39.0-48.0); MEAN CORPUSCULAR HEMOGLOBIN 30.3 pg (27.00-32.0); PLATELET COUNT 128 K/uL (150-450)
[2024-03-25] MEDS ORDERED: APIXABAN 2.5 MG TABLET PO SCH (09:00)
[2024-03-25] MEDS ORDERED: SENNOSIDES 1 TAB TABLET PO SCH (09:00)
[2024-03-25] MEDS ORDERED: hydrALAZINE HCL 50 MG TABLET PO SCH (09:00)
[2024-03-25 09:44] VITALS: BP 150/84; O2SAT 96
[2024-03-25 19:15] VITALS: BP 137/67
[2024-03-26 02:27] VITALS: BP 169/82
[2024-03-26 08:50] VITALS: BP 165/83
[2024-03-26] MEDS ORDERED: IRON FUM,PS/FOLIC ACID/VITC/B3 1 CAP CAPSULE PO SCH (09:00)
[2024-03-26] MEDS ORDERED: DILTIAZEM HCL 180 MG CAP.SR.24H PO SCH (09:00)
[2024-03-26] MEDS ORDERED: DOXAZOSIN MESYLATE 8 MG TABLET PO SCH ×2 (11:10→17:00)
[2024-03-26] MEDS ORDERED: hydrALAZINE HCL 25 MG TABLET PO SCH (13:00)
[2024-03-26] MEDS ORDERED: CEFAZOLIN SODIUM 1,000 MG VIAL IV SCH (17:00)
[2024-03-26 19:46] VITALS: BP 144/78; O2SAT 98
[2024-03-27 01:01] VITALS: BP 160/75; O2SAT 99
[2024-03-27 06:35] LABS: MEAN CELL VOLUME 87.2 fL (80.0-100.00); MEAN CORPUSCULAR HGB CONC 35.3 g/dl (32.0-36.0); RED BLOOD COUNT 2.51 M/uL (4.00-6.00); RED CELL DISTRIBUTION WIDTH 16.3 % (11.5-14.5)
[2024-03-27 06:59] LABS: ALBUMIN 2.2 gm/dL (3.4-5.0); CALCIUM 7.8 mg/dL (8.5-10.1); CREATININE SERUM 3.08 mg/dL (0.70-1.30); GFR 20.23; POTASSIUM 4.04 mEq/L (3.5-5.1)
[2024-03-27 07:09] LABS: HEMATOCRIT 21.9 % (39.0-48.0); HEMOGLOBIN 7.7 g/dL (13-16.00); MEAN CORPUSCULAR HEMOGLOBIN 30.6 pg (27.00-32.0); PLATELET COUNT 89 K/uL (150-450)
[2024-03-27 08:44] VITALS: BP 157/85
[2024-03-27] MEDS ORDERED: DILTIAZEM HCL 240 MG CAP.SR.24H PO SCH (09:00)
[2024-03-27 15:12] LABS: ob NEGATIVE (NEGATIVE)
[2024-03-27] MEDS ORDERED: CALCIUM CARBONATE/VITAMIN D3 1 TAB TABLET PO SCH (17:00)
[2024-03-27] MEDS ORDERED: DOXAZOSIN MESYLATE 8 MG TABLET PO SCH (17:00)
[2024-03-27 19:19] VITALS: BP 149/76
[2024-03-27] MEDS ORDERED: PANTOPRAZOLE SODIUM 40 MG/VIAL VIAL IV SCH (21:00)
[2024-03-27] MEDS ORDERED: SOD FERRIC GLUC COMPLX/SUCROSE 62.5 MG/5 ML AMPUL IV ONE (21:00)
[2024-03-28 02:40] VITALS: BP 153/83; O2SAT 96
[2024-03-28 07:53] LABS: HEMATOCRIT 23.5 % (39.0-48.0); HEMOGLOBIN 8.2 g/dL (13-16.00); MEAN CELL VOLUME 86.8 fL (80.0-100.00); MEAN CORPUSCULAR HEMOGLOBIN 30.2 pg (27.00-32.0); MEAN CORPUSCULAR HGB CONC 34.9 g/dl (32.0-36.0); PLATELET COUNT 108 K/uL (150-450); RED BLOOD COUNT 2.71 M/uL (4.00-6.00); RED CELL DISTRIBUTION WIDTH 16.1 % (11.5-14.5)
[2024-03-28 08:23] LABS: INR 1.02; PARTIAL THROMBOPLASTIN TIME 30.5 SECONDS (22.0-34.0); PROTHROMBIN TIME 11.1 SECONDS (9.0-11.5)
[2024-03-28 08:31] LABS: ALBUMIN 2.6 gm/dL (3.4-5.0); BILIRUBIN TOTAL 0.51 mg/dL (0.3-1.2); CALCIUM 8.4 mg/dL (8.5-10.1); CREATININE SERUM 3.07 mg/dL (0.70-1.30); GFR 20.3; GLOBULINA 4.1 G/DL (2.4-3.5); POTASSIUM 4.47 mEq/L (3.5-5.1); TOTAL PROTEIN 6.7 gm/dL (6.4-8.2)
[2024-03-28 08:34] LABS: FERRITIN 1530.5 NG/ML (26-388)
[2024-03-28] MEDS ORDERED: EPOETIN ALFA-EPBX 10,000 UNIT/ML VIAL (Retacrit) SUBCUTANEO SCH (09:00)
[2024-03-28 10:13] VITALS: BP 154/80; O2SAT 99
[2024-03-28 18:13] VITALS: BP 160/67; O2SAT 96
[2024-03-29 02:06] VITALS: BP 170/99; O2SAT 95
[2024-03-29 07:46] LABS: HEMATOCRIT 26.7 % (39.0-48.0); HEMOGLOBIN 9.4 g/dL (13-16.00); MEAN CELL VOLUME 86.1 fL (80.0-100.00); MEAN CORPUSCULAR HEMOGLOBIN 30.3 pg (27.00-32.0); MEAN CORPUSCULAR HGB CONC 35.3 g/dl (32.0-36.0); RED BLOOD COUNT 3.11 M/uL (4.00-6.00); RED CELL DISTRIBUTION WIDTH 16.9 % (11.5-14.5)
[2024-03-29 07:51] LABS: PLATELET COUNT 126 K/uL (150-450)
[2024-03-29] MEDS ORDERED: PANTOPRAZOLE SODIUM 40 MG TABLET.DR PO SCH (09:00)
[2024-03-29 10:20] VITALS: BP 180/86; O2SAT 98
[2024-03-29] MEDS ORDERED: hydrALAZINE HCL 20 MG VIAL IV NR (12:53)
[2024-03-29] MEDS ORDERED: DILTIAZEM HCL 60 MG TABLET PO STA (12:54)
[2024-03-29] MEDS ORDERED: hydrALAZINE HCL 50 MG TABLET PO SCH (13:00)
[2024-03-29] MEDS ORDERED: DOXAZOSIN MESYLATE 8 MG TABLET PO SCH (17:00)
[2024-03-29 18:39] VITALS: BP 150/72; O2SAT 97
[2024-03-30 01:44] VITALS: BP 159/79; O2SAT 96
[2024-03-30 06:42] LABS: ALBUMIN 2.5 gm/dL (3.4-5.0); CALCIUM 8.6 mg/dL (8.5-10.1); CREATININE SERUM 2.94 mg/dL (0.70-1.30); GFR 21.34; PHOSPHOROUS 3.1 mg/dL (2.5-4.9); POTASSIUM 4.68 mEq/L (3.5-5.1)
[2024-03-30 08:41] VITALS: BP 152/93
[2024-03-30] MEDS ORDERED: hydrALAZINE HCL 50 MG TABLET PO SCH (09:00)
[2024-03-30] MEDS ORDERED: DILTIAZEM HCL 300 MG CAP.SR.24H PO SCH (09:00)
[2024-03-30] MEDS ORDERED: hydrALAZINE HCL 50 MG,hydrALAZINE HCL 25 MG PO SCH (09:26)
[2024-03-30] MEDS ORDERED: DOXAZOSIN MESYLA8 MG PO (15:36)
[2024-03-30] MEDS ORDERED: TOPROL XL50 M1 PO (15:36)
[2024-03-30] MEDS ORDERED: ELIQUIS2.5 MG PO (15:36)
[2024-03-30] MEDS ORDERED: DILTIAZEM ER300 MG PO (15:36)
[2024-03-30] MEDS ORDERED: PANTOPRAZOLE SO40 MG PO (15:38)
[2024-03-30] MEDS ORDERED: GABAPENTIN300 MG PO (15:38)
[2024-03-30] MEDS ORDERED: HYDRALAZINE HCL50 MG PO (15:41)
[2024-03-30] MEDS ORDERED: INTEGRA PLUS C1 EACH PO (15:41)
[2024-03-30] MEDS ORDERED: LIPITOR20 MG PO (15:42)
== END 2024-03-30 17:03 | disposition designated cancer center or children's hospital (05) | DRG 467 ==
LOC: ER 08:08 → MEDJ 18:35
PROVIDERS: General Practice; Internal Medicine; Internal Medicine Hematology & Oncology; Internal Medicine Nephrology; Orthopaedic Surgery; ADMIT Internal Medicine; ATTEND Internal Medicine
PROC: BQ38ZZZ Magnetic Resonance Imaging (MRI) of Left Knee (ICD-10-PCS; 2024-03-13)
PROC: 30233N1 Transfusion of Nonautologous Red Blood Cells into Peripheral Vein, Percutaneous Approach (ICD-10-PCS; 2024-03-17)
PROC: 0SRD0J9 Replacement of Left Knee Joint with Synthetic Substitute, Cemented, Open Approach (ICD-10-PCS; 2024-03-24)
PROC: 0SPD08Z Removal of Spacer from Left Knee Joint, Open Approach (ICD-10-PCS; principal; 2024-03-24 18:30)
PROC: 30233L1 Transfusion of Nonautologous Fresh Plasma into Peripheral Vein, Percutaneous Approach (ICD-10-PCS; 2024-03-27)
PROC: 30233K1 Transfusion of Nonautologous Frozen Plasma into Peripheral Vein, Percutaneous Approach (ICD-10-PCS; 2024-03-27)
DX: T84.54XA Infection and inflammatory reaction due to internal left knee prosthesis, initial encounter (principal); M00.062 Staphylococcal arthritis, left knee; N17.9 Acute kidney failure, unspecified; M60.004 Infective myositis, unspecified left leg; T84.018A Broken internal joint prosthesis, other site, initial encounter; T84.033A Mechanical loosening of internal left knee prosthetic joint, initial encounter; M85.462 Solitary bone cyst, left tibia and fibula; M25.662 Stiffness of left knee, not elsewhere classified; I12.9 Hypertensive chronic kidney disease with stage 1 through stage 4 chronic kidney disease, or unspecified chronic kidney disease; N18.9 Chronic kidney disease, unspecified; D64.9 Anemia, unspecified; M17.12 Unilateral primary osteoarthritis, left knee; B95.61 Methicillin susceptible Staphylococcus aureus infection as the cause of diseases classified elsewhere

== ENCOUNTER 2024-06-29 07:00 | Inpatient (IN) | payer OTHER ==
[~2024-06-29] VITALS: Ht 170.2 cm; Wt 67.1 kg
[~2024-06-29 07:00] MED LIST changes: +DILTIAZEM ER300 MG PO; +GABAPENTIN300 MG PO; +INTEGRA PLUS C1 EACH PO; +LIPITOR20 MG PO; +METHYLPREDNISOLO8 MG; -NIFEDIPINE 30 MG TAB.SA.OSM PO SCH; +TOPROL XL50 M1 PO
[2024-06-29 08:42] VITALS: BP 147/87
[2024-06-29 09:04] LABS: HEMATOCRIT 34.3 % (39.0-48.0); MEAN CELL VOLUME 88.4 fL (80.0-100.00); RED BLOOD COUNT 3.88 M/uL (4.00-6.00); RED CELL DISTRIBUTION WIDTH 14.8 % (11.5-14.5)
[2024-06-29 09:05] LABS: URINE APPEARANCE Clear; URINE BILIRRUBIN Negative (NEGATIVE); URINE BLOOD Moderate; URINE COLOR Yellow; URINE GLUCOSE Negative (NEGATIVE); URINE KETONE Negative (NEGATIVE); URINE LEUKOCYTE Negative; URINE NITRATE Negative; URINE PROTEIN 30 (NEGATIVE); URINE UROBILINOGEN 0.2 E.U./dl
[2024-06-29 09:10] LABS: URINE BACTERIA 8.5 uL (0.0-1933); URINE RBC 15.1 uL (0.0-20.8)
[2024-06-29 09:13] LABS: COVID-19 AG NEGATIVE (NEGATIVE); URINE CAST 1.03 uL (0.0-1.40); URINE EPITHELIAL CELLS 1.2 uL (0.0-38.8); URINE WBC 1.2 uL (0.0-23.2)
[2024-06-29 09:17] LABS: PLATELET COUNT 148 K/uL (150-450)
[2024-06-29 09:50] LABS: INR 1.04; PARTIAL THROMBOPLASTIN TIME 25.9 SECONDS (22.0-34.0); PROTHROMBIN TIME 11.3 SECONDS (9.0-11.5)
[2024-06-29 09:52] LABS: RH POSITIVE
[2024-06-29 10:03] LABS: ALBUMIN 3.2 gm/dL (3.4-5.0); BILIRUBIN TOTAL 0.32 mg/dL (0.3-1.2); CALCIUM 9.5 mg/dL (8.5-10.1); CHOL HDL RATIO 2.6 (0-5.0); CREATININE SERUM 2.16 mg/dL (0.70-1.30); GFR 30.46; GLOBULINA 5.3 G/DL (2.4-3.5); POTASSIUM 4.32 mEq/L (3.5-5.1); TOTAL PROTEIN 8.5 gm/dL (6.4-8.2)
[2024-07-07] MEDS ORDERED: CEFAZOLIN SODIUM 1,000 MG VIAL ONE (06:40)
[2024-07-07] MEDS ORDERED: KETOROLAC TROMETHAMINE 60 MG VIAL IM ONE (07:07)
[2024-07-07] MEDS ORDERED: TRANEXAMIC ACID 100MG/1ML (1000MG) AMPUL IV ONE (07:08)
[2024-07-07] MEDS ORDERED: ISOPROPYL ALCOHOL 30 ML OUNCE TOP ONE (07:08)
[2024-07-07] MEDS ORDERED: POVIDONE-IODINE 118 ML BOTT TOP ONE (07:08)
[2024-07-07] MEDS ORDERED: LIDOCAINE HCL 1%/EPINEPHRINE 20ML VIAL IJ ONE (07:08)
[2024-07-07] MEDS ORDERED: BUPIVACAINE HCL/MPF 0.5% 30ML VIAL ONE (07:08)
[2024-07-07] MEDS ORDERED: ENALAPRILAT DIHYDRATE 1.25 MG/ML VIAL IV ONE (18:50)
[2024-07-08] MEDS ORDERED: hydrALAZINE HCL 20 MG VIAL IV PRN (07:15)
[2024-07-08] MEDS ORDERED: MORPHINE SULFATE 4 MG/ML CARTRIDGE IV PRN (07:45)
[2024-07-08] MEDS ORDERED: SODIUM CHLORIDE 0.45 % 1,000 ML IV SCH (07:45)
[2024-07-08] MEDS ORDERED: OxyCODONE HCL 5 MG TABLET (ROXICODONE) PO PRN (07:45)
[2024-07-08] MEDS ORDERED: GABAPENTIN 300 MG CAPSULE PO SCH (09:00)
[2024-07-08] MEDS ORDERED: ACETAMINOPHEN 500 MG GEL..CAP PO SCH (09:00)
[2024-07-08] MEDS ORDERED: METOPROLOL TARTRATE 25 MG TABLET PO SCH (09:00)
[2024-07-08] MEDS ORDERED: APIXABAN 2.5 MG TABLET PO SCH (09:00)
[2024-07-08] MEDS ORDERED: SENNOSIDES 1 TAB TABLET PO SCH (09:00)
[2024-07-08] MEDS ORDERED: IRON FUM,PS/FOLIC/BCOMP,C NO.9 1 CAP CAPSULE PO SCH (09:00)
[2024-07-08] MEDS ORDERED: SENNA/DOCUSATE SODIUM 1 TAB TABLET ONE (10:14)
[2024-07-08] MEDS ORDERED: GABAPENTIN 300 MG CAPSULE PO ONE ×2 (10:14→10:41)
[2024-07-08] MEDS ORDERED: ACETAMINOPHEN 500 MG GEL..CAP PO ONE ×2 (10:14→10:41)
[2024-07-08] MEDS ORDERED: METOPROLOL TARTRATE 25 MG TABLET PO ONE (10:14)
[2024-07-08] MEDS ORDERED: APIXABAN 2.5 MG TABLET PO ONE (10:14)
[2024-07-08] MEDS ORDERED: CEFAZOLIN SODIUM 1,000 MG VIAL ONE (10:15)
[2024-07-08] MEDS ORDERED: CEFAZOLIN SODIUM 1,000 MG VIAL IV SCH ×2 (12:00→21:00)
[2024-07-08 16:30] VITALS: BP 165/80; O2SAT 99
[2024-07-08] MEDS ORDERED: RIFAMPIN 300 MG CAPSULE PO SCH (21:00)
[2024-07-09 01:33] VITALS: BP 174/81; O2SAT 97
[2024-07-09 06:51] LABS: HEMATOCRIT 27.3 % (39.0-48.0); HEMOGLOBIN 9.4 g/dL (13-16.00); MEAN CELL VOLUME 88.1 fL (80.0-100.00); MEAN CORPUSCULAR HEMOGLOBIN 30.4 pg (27.00-32.0); MEAN CORPUSCULAR HGB CONC 34.4 g/dl (32.0-36.0); PLATELET COUNT 95 K/uL (150-450); RED BLOOD COUNT 3.09 M/uL (4.00-6.00); RED CELL DISTRIBUTION WIDTH 14.5 % (11.5-14.5)
[2024-07-09 07:09] LABS: ERYTHROCYTE SEDIMENTATION RATE 72 mm/hr
[2024-07-09 07:36] LABS: ALBUMIN 2.6 gm/dL (3.4-5.0); BILIRUBIN TOTAL 0.62 mg/dL (0.3-1.2); CREATININE SERUM 2.01 mg/dL (0.70-1.30); GFR 33.1; GLOBULINA 4.3 G/DL (2.4-3.5); MAGNESIUM 2.1 mg/dL (1.8-2.4); PHOSPHOROUS 3.8 mg/dL (2.5-4.9); POTASSIUM 4.59 mEq/L (3.5-5.1); TOTAL PROTEIN 6.9 gm/dL (6.4-8.2)
[2024-07-09 07:47] LABS: C-REACTIVE PROTEIN 22.5 MG/DL (0.00-0.29)
[2024-07-09 08:36] VITALS: BP 173/84; O2SAT 95
[2024-07-09 16:24] VITALS: BP 156/89; O2SAT 95
[2024-07-10 01:05] VITALS: BP 181/76; O2SAT 96
[2024-07-10 03:57] VITALS: BP 160/84; O2SAT 95
[2024-07-10 09:41] VITALS: BP 156/83; O2SAT 95
[2024-07-10] MEDS ORDERED: PATIENTS OWN MEDICATION (MEDICAMENTO EN PISO) PO SCH (12:08)
[2024-07-10] MEDS ORDERED: SOD FERRIC GLUC COMPLX/SUCROSE 62.5 MG in 0.9 % SODIUM CHLORIDE 50 ML IV NR (13:00)
[2024-07-10] MEDS ORDERED: FAMOtidine 20 MG TABLET PO SCH (17:00)
[2024-07-10 17:16] VITALS: BP 169/85; O2SAT 95
[2024-07-10] MEDS ORDERED: ATORVASTATIN CALCIUM 20 MG TABLET PO SCH (21:00)
[2024-07-11 00:21] VITALS: BP 168/81; O2SAT 96
[2024-07-11 07:49] LABS: HEMATOCRIT 25.3 % (39.0-48.0); MEAN CELL VOLUME 88.2 fL (80.0-100.00); MEAN CORPUSCULAR HGB CONC 34.4 g/dl (32.0-36.0); PLATELET COUNT 143 K/uL (150-450); RED BLOOD COUNT 2.87 M/uL (4.00-6.00); RED CELL DISTRIBUTION WIDTH 14.7 % (11.5-14.5)
[2024-07-11 07:50] LABS: HEMOGLOBIN 8.7 g/dL (13-16.00); MEAN CORPUSCULAR HEMOGLOBIN 30.3 pg (27.00-32.0)
[2024-07-11 08:00] VITALS: BP 140/83; O2SAT 95
[2024-07-11 08:24] LABS: ALBUMIN 2.5 gm/dL (3.4-5.0); BILIRUBIN TOTAL 0.35 mg/dL (0.3-1.2); CALCIUM 8.5 mg/dL (8.5-10.1); CREATININE SERUM 1.83 mg/dL (0.70-1.30); GFR 36.89; GLOBULINA 4.6 G/DL (2.4-3.5); POTASSIUM 4.52 mEq/L (3.5-5.1); TOTAL PROTEIN 7.1 gm/dL (6.4-8.2)
[2024-07-11] MEDS ORDERED: DOXAZOSIN MESYLATE 4 MG TABLET PO SCH (09:00)
[2024-07-11] MEDS ORDERED: SOD FERRIC GLUC COMPLX/SUCROSE 62.5 MG in 0.9 % SODIUM CHLORIDE 50 ML IV SCH (09:00)
[2024-07-11] MEDS ORDERED: DILTIAZEM HCL 240 MG CAP.SR.24H PO SCH (09:00)
[2024-07-11 15:00] VITALS: BP 173/83; O2SAT 96
[2024-07-11] MEDS ORDERED: Cyanocobalamin/Mecobalamin 1 TAB.SL SL SCH (16:05)
[2024-07-11] MEDS ORDERED: AMLODIPINE BESYLATE 5 MG TABLET PO ONE (21:42)
[2024-07-11] MEDS ORDERED: hydrALAZINE HCL 20 MG VIAL ONE ×2 (21:42→23:42)
[2024-07-11] MEDS ORDERED: LORazepam 0.5 MG TABLET PO ONE (21:45)
[2024-07-11] MEDS ORDERED: AMLODIPINE BESYLATE 5 MG TABLET PO SCH (21:45)
[2024-07-11] MEDS ORDERED: hydrALAZINE HCL 20 MG VIAL IV PRN (21:46)
[2024-07-11 21:54] VITALS: BP 186/87; O2SAT 95
[2024-07-11] MEDS ORDERED: EPOETIN ALFA-EPBX 10,000 UNIT/ML VIAL (Retacrit) SUBCUTANEO ONE (22:45)
[2024-07-11 23:57] VITALS: BP 202/100; O2SAT 97
[2024-07-12] MEDS ORDERED: NITROGLYCERIN IN 5 % DEXTROSE 50 MG/250 ML BOTTLE IV ONE (01:02)
[2024-07-12] MEDS ORDERED: NITROGLYCERIN IN 5 % DEXTROSE 250 ML IV SCH ×2 (01:15→10:30)
[2024-07-12 01:30] VITALS: BP 169/82; O2SAT 97
[2024-07-12] MEDS ORDERED: DILTIAZEM HCL 125 MG in 0.9 % SODIUM CHLORIDE 100 ML IV SCH (03:15)
[2024-07-12] MEDS ORDERED: LOSARTAN POTASSIUM 50 MG TABLET PO SCH (09:35)
[2024-07-12 11:42] VITALS: O2SAT 97
[2024-07-12] MEDS ORDERED: FUROsemide 20 MG/2 ML VIAL ONE (12:42)
[2024-07-12] MEDS ORDERED: FUROsemide 20 MG/2 ML VIAL IV STA (12:52)
[2024-07-12 15:36] VITALS: BP 139/74; O2SAT 98
[2024-07-12] MEDS ORDERED: FUROsemide 20 MG/2 ML VIAL IV SCH (17:30)
[2024-07-12 22:15] VITALS: BP 163/85
[2024-07-13 00:24] VITALS: BP 153/73; O2SAT 97
[2024-07-13 03:14] LABS: HEMATOCRIT 29.3 % (39.0-48.0); HEMOGLOBIN 10.1 g/dL (13-16.00); MEAN CELL VOLUME 88.5 fL (80.0-100.00); MEAN CORPUSCULAR HEMOGLOBIN 30.5 pg (27.00-32.0); MEAN CORPUSCULAR HGB CONC 34.5 g/dl (32.0-36.0); PLATELET COUNT 160 K/uL (150-450); RED BLOOD COUNT 3.31 M/uL (4.00-6.00); RED CELL DISTRIBUTION WIDTH 14.9 % (11.5-14.5)
[2024-07-13 09:24] VITALS: BP 169/79; O2SAT 95
[2024-07-13 13:43] VITALS: BP 140/80; O2SAT 99
[2024-07-13 16:00] VITALS: BP 160/82; O2SAT 95
[2024-07-13 21:00] VITALS: BP 180/89
[2024-07-14 00:37] VITALS: BP 162/76; O2SAT 96
[2024-07-14 08:00] VITALS: BP 178/90; O2SAT 97
[2024-07-14 11:55] VITALS: BP 167/87; O2SAT 94
[2024-07-14] MEDS ORDERED: LOSARTAN POTASSIUM 50 MG TABLET PO STA (12:13)
[2024-07-14 16:49] VITALS: BP 164/82; O2SAT 96
[2024-07-15 00:34] VITALS: BP 179/86; O2SAT 94
[2024-07-15 06:48] LABS: HEMATOCRIT 30.6 % (39.0-48.0); HEMOGLOBIN 10.4 g/dL (13-16.00); MEAN CELL VOLUME 89.9 fL (80.0-100.00); MEAN CORPUSCULAR HEMOGLOBIN 30.7 pg (27.00-32.0); MEAN CORPUSCULAR HGB CONC 34.1 g/dl (32.0-36.0); PLATELET COUNT 168 K/uL (150-450); RED CELL DISTRIBUTION WIDTH 14.9 % (11.5-14.5)
[2024-07-15 07:08] LABS: ERYTHROCYTE SEDIMENTATION RATE 91 mm/hr
[2024-07-15 07:16] LABS: ALBUMIN 2.8 gm/dL (3.4-5.0); BILIRUBIN TOTAL 0.38 mg/dL (0.3-1.2); CALCIUM 8.7 mg/dL (8.5-10.1); CREATININE SERUM 1.8 mg/dL (0.70-1.30); GFR 37.6; GLOBULINA 4.4 G/DL (2.4-3.5); MAGNESIUM 1.8 mg/dL (1.8-2.4); PHOSPHOROUS 3.8 mg/dL (2.5-4.9); POTASSIUM 4.26 mEq/L (3.5-5.1); TOTAL PROTEIN 7.2 gm/dL (6.4-8.2)
[2024-07-15 07:17] LABS: C-REACTIVE PROTEIN 5.25 MG/DL (0.00-0.29)
[2024-07-15 08:00] VITALS: BP 173/90; O2SAT 95
[2024-07-15] MEDS ORDERED: LOSARTAN POTASSIUM 100 MG TABLET PO SCH (09:00)
[2024-07-15 12:35] LABS: COVID-19 AG NEGATIVE (NEGATIVE)
[2024-07-15] MEDS ORDERED: AMLODIPINE BESYLATE 10 MG TABLET PO SCH (17:00)
[2024-07-15 18:57] VITALS: BP 165/86; O2SAT 97
[2024-07-16 00:55] VITALS: BP 180/88; O2SAT 96
[2024-07-16 09:56] VITALS: BP 174/89; O2SAT 96
[2024-07-16 12:00] VITALS: BP 172/85
[2024-07-16 16:00] VITALS: BP 190/95; O2SAT 96
[2024-07-17] VITALS: BP 158/90; O2SAT 95
[2024-07-17 06:58] LABS: HEMATOCRIT 27.5 % (39.0-48.0); HEMOGLOBIN 9.6 g/dL (13-16.00); MEAN CELL VOLUME 89.2 fL (80.0-100.00); MEAN CORPUSCULAR HEMOGLOBIN 31.1 pg (27.00-32.0); MEAN CORPUSCULAR HGB CONC 34.9 g/dl (32.0-36.0); PLATELET COUNT 187 K/uL (150-450); RED BLOOD COUNT 3.08 M/uL (4.00-6.00); RED CELL DISTRIBUTION WIDTH 14.8 % (11.5-14.5)
[2024-07-17 07:40] LABS: ALBUMIN 2.6 gm/dL (3.4-5.0); ALKALINE PHOSPHATASE 70 U/L (50-136); ANION GAP 9 (10.0-20.0); AST/SGOT 18 U/L (15-37); BILIRUBIN TOTAL 0.38 mg/dL (0.3-1.2); BLOOD UREA NITROGEN 26 mg/dL (7-18); BUN CREA RATIO 16 (7.0-25.0); CALCIUM 8.8 mg/dL (8.5-10.1); CARBON DIOXIDE 28 mEq/L (21-32); CHLORIDE 109 mmol/L (98-107); CREATININE SERUM 1.66 mg/dL (0.70-1.30); GFR 41.28; GLOBULINA 4.3 G/DL (2.4-3.5); GLUCOSE FASTING 98 mg/dL (65-100); OSMOLALITY SERUM 288 MOSM/KG (275-295); POTASSIUM 3.87 mEq/L (3.5-5.1); SODIUM 142 mmol/L (136-145); TOTAL PROTEIN 6.9 gm/dL (6.4-8.2)
[2024-07-17 07:43] LABS: ALT/SGPT < 6 U/L (12-78)
[2024-07-17 08:00] VITALS: BP 151/84; O2SAT 95
[2024-07-17 17:27] VITALS: BP 176/83; O2SAT 95
[2024-07-17] MEDS ORDERED: hydrALAZINE HCL 25 MG TABLET PO SCH (21:01)
[2024-07-18 01:52] VITALS: BP 189/90; O2SAT 97
[2024-07-18 08:00] VITALS: BP 195/93; O2SAT 95
[2024-07-18] MEDS ORDERED: NIFEDIPINE 60 MG TAB.SA.OSM PO SCH (09:00)
[2024-07-18] MEDS ORDERED: METOPROLOL TARTRATE 25 MG TABLET PO ONE (13:39)
[2024-07-18 16:00] VITALS: BP 160/78; O2SAT 97
[2024-07-19] MEDS ORDERED: hydrALAZINE HCL 25 MG TABLET PO SCH (01:00)
[2024-07-19] MEDS ORDERED: [UNRECOGNIZED DRUG - MIXTURE] TOP SCH (05:00)
[2024-07-19 08:00] VITALS: BP 207/98; O2SAT 96
[2024-07-19] MEDS ORDERED: hydrALAZINE HCL 50 MG TABLET PO SCH (09:00)
[2024-07-19] MEDS ORDERED: METOPROLOL TARTRATE 25 MG TABLET PO SCH (13:00)
[2024-07-19] MEDS ORDERED: SILVER SULFADIAZINE 50 GM,ZINC OXIDE 30 GM TOP SCH (13:00)
[2024-07-19 16:30] VITALS: BP 187/86; O2SAT 97
[2024-07-19 23:42] VITALS: BP 188/87; O2SAT 98
[2024-07-20 09:07] VITALS: BP 175/87; O2SAT 98
[2024-07-20 15:50] LABS: HEMATOCRIT 26.8 % (39.0-48.0); MEAN CELL VOLUME 89.6 fL (80.0-100.00); MEAN CORPUSCULAR HEMOGLOBIN 30.2 pg (27.00-32.0); MEAN CORPUSCULAR HGB CONC 33.8 g/dl (32.0-36.0); PLATELET COUNT 170 K/uL (150-450); RED BLOOD COUNT 2.99 M/uL (4.00-6.00); RED CELL DISTRIBUTION WIDTH 14.7 % (11.5-14.5)
[2024-07-20 16:41] VITALS: BP 148/73; O2SAT 96
[2024-07-20 16:46] LABS: CALCIUM 8.2 mg/dL (8.5-10.1); CREATININE SERUM 1.78 mg/dL (0.70-1.30); GFR 38.09; MAGNESIUM 1.9 mg/dL (1.8-2.4); PHOSPHOROUS 3.6 mg/dL (2.5-4.9); POTASSIUM 3.65 mEq/L (3.5-5.1)
[2024-07-20 16:48] LABS: C-REACTIVE PROTEIN 11.1 MG/DL (0.00-0.29)
[2024-07-20 16:59] LABS: ERYTHROCYTE SEDIMENTATION RATE > 130 mm/hr
[2024-07-20] MEDS ORDERED: hydrALAZINE HCL 50 MG,hydrALAZINE HCL 25 MG PO SCH (17:00)
[2024-07-20] MEDS ORDERED: hydrALAZINE HCL 50 MG TABLET PO SCH ×2 (17:00)
[2024-07-21 00:44] VITALS: BP 168/84; O2SAT 97
[2024-07-21 08:00] VITALS: BP 165/80; O2SAT 95
[2024-07-21] MEDS ORDERED: SOD FERRIC GLUC COMPLX/SUCROSE 62.5 MG in 0.9 % SODIUM CHLORIDE 50 ML IV SCH (09:00)
[2024-07-21] MEDS ORDERED: FOLIC ACID 1 MG TABLET PO SCH (09:00)
[2024-07-21 16:00] VITALS: BP 155/73; O2SAT 96
[2024-07-21 16:22] VITALS: O2SAT 98
[2024-07-22 01:04] VITALS: BP 159/71; O2SAT 98
[2024-07-22 08:00] VITALS: BP 195/92; O2SAT 96
[2024-07-22] MEDS ORDERED: NIFEDIPINE 90 MG TAB.SA.OSM PO SCH (09:00)
[2024-07-22] MEDS ORDERED: FUROsemide 20 MG/2 ML VIAL IV SCH (13:15)
[2024-07-22 16:30] VITALS: BP 151/79; O2SAT 94
[2024-07-22] MEDS ORDERED: VITAMIN B COMPLEX 1 EACH PO SCH (17:00)
[2024-07-23 01:30] VITALS: BP 160/72; O2SAT 96
[2024-07-23 08:25] VITALS: BP 177/84; O2SAT 97
[2024-07-23 16:00] VITALS: BP 157/83; O2SAT 96
[2024-07-24] VITALS: BP 173/81; O2SAT 96
[2024-07-24 05:41] VITALS: BP 187/90
[2024-07-24 08:00] VITALS: BP 158/77; O2SAT 96
[2024-07-24 16:01] VITALS: BP 134/63; O2SAT 97
[2024-07-25] VITALS: BP 158/76; O2SAT 96
[2024-07-25 07:00] VITALS: BP 159/82; O2SAT 98
[2024-07-25 07:42] LABS: ALBUMIN 2.9 gm/dL (3.4-5.0); BILIRUBIN TOTAL 0.53 mg/dL (0.3-1.2); CALCIUM 8.7 mg/dL (8.5-10.1); CREATININE SERUM 1.81 mg/dL (0.70-1.30); GFR 37.36; GLOBULINA 4.8 G/DL (2.4-3.5); MAGNESIUM 1.8 mg/dL (1.8-2.4); PHOSPHOROUS 3.8 mg/dL (2.5-4.9); POTASSIUM 4.07 mEq/L (3.5-5.1); TOTAL PROTEIN 7.7 gm/dL (6.4-8.2)
[2024-07-25 07:48] LABS: C-REACTIVE PROTEIN 2.61 MG/DL (0.00-0.29)
[2024-07-25 08:04] LABS: BASO % 0.8 % (0.1-1.2); EOS # 0.47 (0.04-0.54); EOS % 6.6 % (0.7-7.0); HEMATOCRIT 34.3 % (40.1-51.0); HEMOGLOBIN 11.8 g/dL (13.7-17.5); LYMPH # 0.63 (1.18-3.74); LYMPH % 8.8 % (19.3-53.1); MEAN CORPUSCULAR HEMOGLOBIN 30.3 pg (25.6-32.2); MONO # 0.65 (0.24-0.82); MONO % 9.1 % (4.7-12.5); NEUT # 5.26 (1.56-6.13); NEUT % 73.6 % (34.0-71.1); PLATELET COUNT 165 K/uL (163-369); RED BLOOD COUNT 3.89 M/uL (4.63-6.08); RED CELL DISTRIBUTION WIDTH 14.8 % (11.6-14.4)
[2024-07-25 08:05] LABS: ERYTHROCYTE SEDIMENTATION RATE 103 mm/hr (0-20)
[2024-07-25 16:00] VITALS: BP 136/77; O2SAT 96
[2024-07-26 00:47] VITALS: BP 157/78; O2SAT 98
[2024-07-26 08:33] VITALS: BP 162/87; O2SAT 95
[2024-07-26 08:41] LABS: BASO % 0.9 % (0.1-1.2); EOS # 0.48 (0.04-0.54); EOS % 6.9 % (0.7-7.0); HEMATOCRIT 33.5 % (40.1-51.0); HEMOGLOBIN 11.3 g/dL (13.7-17.5); LYMPH # 0.72 (1.18-3.74); LYMPH % 10.3 % (19.3-53.1); MEAN CORPUSCULAR HEMOGLOBIN 30.1 pg (25.6-32.2); MONO # 0.63 (0.24-0.82); MONO % 9.1 % (4.7-12.5); NEUT # 4.98 (1.56-6.13); NEUT % 71.5 % (34.0-71.1); PLATELET COUNT 168 K/uL (163-369); RED BLOOD COUNT 3.76 M/uL (4.63-6.08); RED CELL DISTRIBUTION WIDTH 14.8 % (11.6-14.4)
[2024-07-26 16:00] VITALS: BP 152/77; O2SAT 96
[2024-07-27 01:21] VITALS: BP 162/84; O2SAT 95
[2024-07-27 08:00] VITALS: BP 173/85; O2SAT 96
[2024-07-27 10:22] VITALS: BP 118/71; O2SAT 95
[2024-07-27 16:10] VITALS: BP 113/69; O2SAT 95
[2024-07-28 01:00] VITALS: BP 155/74; O2SAT 96
[2024-07-28 08:00] VITALS: BP 160/80; O2SAT 97
[2024-07-28 16:17] VITALS: BP 135/64; O2SAT 96
[2024-07-29 01:00] VITALS: BP 139/69; O2SAT 96
[2024-07-29 08:00] VITALS: BP 152/76; O2SAT 96
[2024-07-29 16:46] VITALS: BP 108/58; O2SAT 95
[2024-07-30 00:47] VITALS: BP 157/76; O2SAT 97
[2024-07-30 08:00] VITALS: BP 148/78; O2SAT 97
[2024-07-30 16:00] VITALS: BP 158/80; O2SAT 98
[2024-07-31 00:15] VITALS: BP 160/80; O2SAT 95
[2024-07-31 07:22] LABS: BASO % 0.9 % (0.1-1.2); EOS # 0.42 (0.04-0.54); EOS % 7.2 % (0.7-7.0); HEMATOCRIT 33.6 % (40.1-51.0); HEMOGLOBIN 11.1 g/dL (13.7-17.5); LYMPH # 0.67 (1.18-3.74); LYMPH % 11.5 % (19.3-53.1); MEAN CORPUSCULAR HEMOGLOBIN 30.4 pg (25.6-32.2); MONO # 0.61 (0.24-0.82); MONO % 10.5 % (4.7-12.5); NEUT # 4.04 (1.56-6.13); NEUT % 69.4 % (34.0-71.1); RED BLOOD COUNT 3.65 M/uL (4.63-6.08); RED CELL DISTRIBUTION WIDTH 14.4 % (11.6-14.4)
[2024-07-31 07:38] LABS: PLATELET COUNT 130 K/uL (163-369)
[2024-07-31 07:45] LABS: ERYTHROCYTE SEDIMENTATION RATE 66 mm/hr (0-20)
[2024-07-31 08:00] VITALS: BP 169/84; O2SAT 95
[2024-07-31 08:20] LABS: ALBUMIN 2.9 gm/dL (3.4-5.0); BILIRUBIN TOTAL 0.27 mg/dL (0.3-1.2); CALCIUM 8.5 mg/dL (8.5-10.1); CREATININE SERUM 1.86 mg/dL (0.70-1.30); GFR 36.2; GLOBULINA 4.3 G/DL (2.4-3.5); MAGNESIUM 1.8 mg/dL (1.8-2.4); PHOSPHOROUS 3.4 mg/dL (2.5-4.9); POTASSIUM 4.08 mEq/L (3.5-5.1); TOTAL PROTEIN 7.2 gm/dL (6.4-8.2)
[2024-07-31 08:21] LABS: C-REACTIVE PROTEIN 1.3 MG/DL (0.00-0.29)
[2024-07-31 16:00] VITALS: BP 114/63; O2SAT 96
[2024-08-01 02:19] VITALS: BP 138/64; O2SAT 100
[2024-08-01 08:00] VITALS: BP 156/76; O2SAT 97
[2024-08-01 15:57] VITALS: BP 102/61; O2SAT 94
[2024-08-02 01:42] VITALS: BP 132/76; O2SAT 99
[2024-08-02 17:55] VITALS: BP 103/60; O2SAT 96
[2024-08-03 01:31] VITALS: BP 132/66; O2SAT 98
[2024-08-03 08:10] VITALS: BP 136/74; O2SAT 97
[2024-08-03 11:18] LABS: COVID-19 AG NEGATIVE (NEGATIVE)
[2024-08-03 15:57] VITALS: BP 160/85; O2SAT 99
[2024-08-03] MEDS ORDERED: LINEZOLID 600 MG TABLET PO SCH (21:00)
[2024-08-04 01:17] VITALS: BP 157/78; O2SAT 95
[2024-08-04 08:16] VITALS: BP 175/87; O2SAT 98
[2024-08-04] MEDS ORDERED: SOD FERRIC GLUC COMPLX/SUCROSE 62.5 MG/5 ML AMPUL IV SCH (10:27)
[2024-08-04 16:40] VITALS: BP 121/62; O2SAT 100
[2024-08-05 00:57] VITALS: BP 131/70; O2SAT 95
[2024-08-05 07:04] LABS: BASO % 0.9 % (0.1-1.2); EOS % 6.9 % (0.7-7.0); HEMATOCRIT 31.8 % (40.1-51.0); HEMOGLOBIN 10.5 g/dL (13.7-17.5); LYMPH % 12.1 % (19.3-53.1); MEAN CORPUSCULAR HEMOGLOBIN 30.6 pg (25.6-32.2); MONO # 0.68 (0.24-0.82); MONO % 11.8 % (4.7-12.5); NEUT # 3.92 (1.56-6.13); NEUT % 67.8 % (34.0-71.1); RED BLOOD COUNT 3.43 M/uL (4.63-6.08); RED CELL DISTRIBUTION WIDTH 14.4 % (11.6-14.4)
[2024-08-05 07:10] LABS: PLATELET COUNT 117 K/uL (163-369)
[2024-08-05 07:19] LABS: CALCIUM 8.5 mg/dL (8.5-10.1); CREATININE SERUM 1.97 mg/dL (0.70-1.30); GFR 33.88; POTASSIUM 4.56 mEq/L (3.5-5.1)
[2024-08-05 08:19] VITALS: BP 140/74; O2SAT 96
[2024-08-05 14:16] VITALS: O2SAT 80
[2024-08-05 16:15] VITALS: BP 126/68; O2SAT 96
[2024-08-06 00:35] VITALS: BP 121/66; O2SAT 94
[2024-08-06 07:02] LABS: BASO % 0.6 % (0.1-1.2); EOS # 0.36 (0.04-0.54); EOS % 5.6 % (0.7-7.0); HEMOGLOBIN 10.4 g/dL (13.7-17.5); LYMPH # 0.78 (1.18-3.74); LYMPH % 12.2 % (19.3-53.1); MEAN CORPUSCULAR HEMOGLOBIN 29.5 pg (25.6-32.2); MONO # 0.63 (0.24-0.82); MONO % 9.9 % (4.7-12.5); NEUT # 4.53 (1.56-6.13); NEUT % 71.1 % (34.0-71.1); RED BLOOD COUNT 3.53 M/uL (4.63-6.08); RED CELL DISTRIBUTION WIDTH 14.6 % (11.6-14.4)
[2024-08-06 07:21] LABS: PLATELET COUNT 114 K/uL (163-369)
[2024-08-06 07:42] LABS: BILIRUBIN TOTAL 0.24 mg/dL (0.3-1.2); CALCIUM 8.3 mg/dL (8.5-10.1); CREATININE SERUM 2.16 mg/dL (0.70-1.30); GFR 30.46; GLOBULINA 4.3 G/DL (2.4-3.5); PHOSPHOROUS 3.4 mg/dL (2.5-4.9); POTASSIUM 4.44 mEq/L (3.5-5.1); TOTAL PROTEIN 7.3 gm/dL (6.4-8.2)
[2024-08-06 07:44] LABS: C-REACTIVE PROTEIN 1.15 MG/DL (0.00-0.29)
[2024-08-06 08:00] VITALS: BP 145/75; O2SAT 96
[2024-08-06] MEDS ORDERED: SOD FERRIC GLUC COMPLX/SUCROSE 62.5 MG/5 ML AMPUL IV SCH (09:00)
[2024-08-06 16:24] VITALS: BP 103/58; O2SAT 95
[2024-08-07 00:50] VITALS: BP 125/73; O2SAT 95
[2024-08-07 07:31] LABS: BASO % 0.8 % (0.1-1.2); EOS # 0.37 (0.04-0.54); EOS % 6.1 % (0.7-7.0); HEMATOCRIT 31.5 % (40.1-51.0); HEMOGLOBIN 10.5 g/dL (13.7-17.5); LYMPH # 0.78 (1.18-3.74); MEAN CORPUSCULAR HEMOGLOBIN 30.9 pg (25.6-32.2); MONO # 0.65 (0.24-0.82); MONO % 10.8 % (4.7-12.5); NEUT # 4.12 (1.56-6.13); NEUT % 68.5 % (34.0-71.1); RED CELL DISTRIBUTION WIDTH 14.6 % (11.6-14.4)
[2024-08-07 07:42] LABS: PLATELET COUNT 118 K/uL (163-369)
[2024-08-07 08:00] VITALS: BP 153/81; O2SAT 97
[2024-08-07 16:17] VITALS: BP 107/57; O2SAT 96
== END 2024-08-07 18:59 | disposition home or self-care (01) | DRG 464 ==
LOC: SURG 07-07 05:25 → O/R 07-07 05:25 → SURG 07-07 07:00 → CIR.AMB 07-07 07:00 → SURH 07-07 07:00 → EDSTATUS 07-07 07:00 → SURH 07-07 10:45 → SURG 07-07 20:00
PROVIDERS: Internal Medicine; Internal Medicine Geriatric Medicine; Internal Medicine Infectious Disease; ADMIT Orthopaedic Surgery; ATTEND Orthopaedic Surgery
PROC: 0SPD0JZ Removal of Synthetic Substitute from Left Knee Joint, Open Approach (ICD-10-PCS; principal; 2024-07-07)
PROC: 4A12X4Z Monitoring of Cardiac Electrical Activity, External Approach (ICD-10-PCS; 2024-07-12)
PROC: 30243N1 Transfusion of Nonautologous Red Blood Cells into Central Vein, Percutaneous Approach (ICD-10-PCS; 2024-07-12)
PROC: 02HV33Z Insertion of Infusion Device into Superior Vena Cava, Percutaneous Approach (ICD-10-PCS; 2024-07-15)
PROC: B24BYZZ Ultrasonography of Heart with Aorta using Other Contrast (ICD-10-PCS; 2024-07-16)
PROC: B54NZZZ Ultrasonography of Left Upper Extremity Veins (ICD-10-PCS; 2024-07-19)
DX: T84.033A Mechanical loosening of internal left knee prosthetic joint, initial encounter (principal); D62 Acute posthemorrhagic anemia; M00.9 Pyogenic arthritis, unspecified; N17.9 Acute kidney failure, unspecified; N28.9 Disorder of kidney and ureter, unspecified; I10 Essential (primary) hypertension; K21.9 Gastro-esophageal reflux disease without esophagitis; F43.20 Adjustment disorder, unspecified; B96.5 Pseudomonas (aeruginosa) (mallei) (pseudomallei) as the cause of diseases classified elsewhere; D69.6 Thrombocytopenia, unspecified; M17.12 Unilateral primary osteoarthritis, left knee
CPT/HCPCS: 240